=== PATIENT | female | born 1930 | race Caucasian/White ===

== ENCOUNTER 2016-06-25 15:42 | Emergency (ER) | payer MEDICARE ==
[~2016-06-25] VITALS: Ht 160 cm; Wt 78.2 kg
[2016-06-25] VITALS (7 sets, daily range): BP systolic 114–149; BP diastolic 56–80; PULSE 94–124; RESP 13–19; O2SAT 97–99
[2016-06-25] MEDS ORDERED: HYDROmorphone 1 mg/mL Inj IVPUSH ONE ×3 (16:20→19:30)
--- NOTE | 2016-06-25 16:22 | ED.REPORT ---
HPI-Trauma Multiple Date of Service Jun 25, 2016 ED Provider: Rasta Landeros MD An 86 year old female on Coumadin with a history of atrial flutter, hypertension , diabetes, and multiple other medical concerns is brought to the ED via EMS due to a fall. The pt was walking from her car to her home when she slipped on the rocks on the pathway. She fell down, hitting her left knee and left shoulder. She is now experiencing severe left shoulder pain, though she denies knee pain, neck pain, back pain, vomiting, numbness, or tingling. She also denies head trauma or loss of consciousness. The pt is on Coumadin and Metoprolol 50 mg BID. She took her morning medications, but has not taken her nightly doses. Her last meal was at 11:00. Nursing Notes Stated Complaint: FALL Chief Complaint: Extremity Trauma Nursing Notes Reviewed: Yes Allergies: Coded Allergies: HEIDY Inhibitors (Verified Allergy, Severe, ANGIOEDEMA, 02/06/09) Sulfa (Sulfonamide Antibiotics) (Verified Allergy, Intermediate, 06/25/16) morphine (Verified Allergy, Intermediate, itch, 06/25/16) cephalexin (Verified Allergy, Unknown, 06/25/16) nitrofurantoin (Verified Allergy, Unknown, 06/25/16) Scheduled Citalopram (Citalopram) 20 Mg Tablet 20 MG PO DAILY Estradiol (Estrace) 42.5 Gm Cream.appl 1 G VG /Sundays Losartan Potassium (Losartan Potassium) 25 Mg Tablet 25 MG PO DAILY Lovastatin (Lovastatin) 40 Mg Tablet 80 MG PO HS Metoprolol Tartrate (Metoprolol Tartrate) 50 Mg Tablet 50 MG PO BID Spironolactone (Spironolactone) 25 Mg Tablet 25 MG PO DAILY Warfarin Sodium (Warfarin Sodium) 5 Mg Tablet 2.5 MG PO Daily except Scheduled PRN Docusate Sodium (Docusate Sodium) 250 Mg Capsule 250 MG PO DAILY PRN PRN For Constipation Hydrocodone-Acetaminophen 5-325 mg (Hydrocodone-Acetaminophen 5-325 mg) 1 Each Tablet 1.5 TABLET PO Q6H PRN PRN For Pain General Time Seen by Provider: 16:17 Chief Complaint Other (left shoulder pain) Hx Obtained From: Patient, EMS Arrived By: Ambulance Onset Occurred: 1 - 4 hours ago Symptom Duration: Since onset Recent Healthcare: No recent hospitalization, Recent doctor visit Similar Sx Previous: No Past Medical History Past Medical History atrial flutter diabetes cataracts hypertension UTI arthritis depression anxiety Past Surgical History Reports: Appendectomy, Cataract surgery Review of Systems Review of Systems Note: denies numbness or tingling Constitutional: Denies: Fever Respiratory: Denies: Non-productive cough, Shortness of breath Cardiovascular: Denies: Chest pain GI: Denies: Abdominal pain, Nausea, Vomiting Musculoskeletal: Reports: Joint pain (left shoulder), Denies: Back pain, Neck pain Skin: Denies Rash Neurologic: Denies: Change LOC, Headache, Weakness Complete sys rev & neg: except as marked. Physical Exam Initial Vital Signs Vital Signs (First) Date Time Temp Pulse Resp B/P Pulse Ox O2 Delivery O2 Flow Rate FiO2 06/25/16 15:57 36.2 114 13 138/68 98 Room Air Initial VS: Reviewed General/Constitutional: Awake, Alert Head / Eyes: Atraumatic, Normocephalic, PERRL, EOMI Neck: Atraumatic, Supple, Full range of motion no c-spine tenderness or deformity Respiratory / Chest: Atraumatic, Breath sounds NL, Breath sounds = bilat, No respiratory distress Cardiovascular: Heart rate NL, Regular rhythm, Heart sounds NL, No gallop, No murmurs, No rubs Abdomen: Atraumatic, Soft, Non-tender Back: Atraumatic, Full range of motion Neurologic: Oriented X3, Speech NL, No motor deficits, No sensory deficits ENT: Atraumatic, Airway patent, Mucous membranes moist right arm atraumatic obvious deformity of left shoulder senior center director strength intact in left hand neurovascularly intact left arm sensation intact in deltoid region left elbow nontender Lower Extremity / Pelvis / MS: Atraumatic mild tenderness over left lateral hip pelvis stable to rock and compression FROM of LLE able to flex at hip and knee no signs of significant trauma to hip or knee no significant tenderness to left knee FROM of RLE, atraumatic bilaterally neurovascularly intact Skin: Atraumatic, Color NL, No rash, Warm, Dry Psychiatric: Affect NL, Mood NL Interpretation & Diagnostics Lab Results Interpretation Result Diagram: 06/25/16 1617 06/25/16 1617 Test 06/25/16 16:17 White Blood Count 12.8th/mm3 (3.8-10.1) Red Blood Count 3.99mil/mm3 (3.90-5.20) Hemoglobin 12.5g/dL (12.0-15.6) Hematocrit 37.1% (35.0-46.0) Mean Corpuscular Volume 93.0fL (81-100) Mean Corpuscular Hemoglobin 31.3pg (27.0-35.0) Mean Corpuscular Hemoglobin Concent 33.7% (32.0-37.0) Red Cell Distribution Width 14.2% (12.3-15.4) Platelet Count 209bil/L (150-400) Neutrophils (%) (Auto) 81.3% (40-74) Lymphocytes (%) (Auto) 9.4% (14-46) Monocytes (%) (Auto) 7.2% (4-12) Eosinophils (%) (Auto) 1.6% (0-5) Basophils (%) (Auto) 0.2% (0-3) Prothrombin Time 33.8sec (8.1-12.5) Prothromb Time International Ratio 3.09ratio Activated Partial Thromboplast Time 36.0sec (22.8-33.0) Sodium Level 138mEq/L (134-144) Potassium Level 4.8mEq/L (3.5-5.2) Chloride Level 99mEq/L (97-108) Carbon Dioxide Level 18mmol/L (18-29) Blood Urea Nitrogen 33mg/dL (8-27) Creatinine 1.18mg/dL (0.57-1.00) Estimat Glomerular Filtration Rate 62mL/min (>59) Glucose Level 161mg/dL (60-99) Calcium Level 9.2mg/dL (8.5-10.1) Total Bilirubin 2.4mg/dL (0.0-1.2) Aspartate Amino Transf (AST/SGOT) 55U/L (0-50) Alanine Aminotransferase (ALT/SGPT) 61U/L (0-32) Alkaline Phosphatase 460U/L (25-165) Total Protein 6.4g/dL (6.4-8.4) Albumin 3.5g/dL (3.4-5.0) ECG Interpretation ECG Interpretation: atrial flutter with a rate of 118 normal axis interval no acute ST segment changes or T wave abnormalities no previous for comparison Time: 16:23 Interpreted by: ED physician X-Ray Interpretation Xray Interpretation: IMPRESSION: Left humerus fracture dislocation. Dictated by: Soo Knight MD, PhD on 06/25/2016 at 17:23 Approved by: Soo Knight MD, PhD on 06/25/2016 at 17:24 X-Ray Ordered: Shoulder left Interpretation / Wet Read by: Interpret - Radiologist Xray Interpretation: IMPRESSION: Left humerus fracture dislocation. Dictated by: Soo Knight MD, PhD on 06/25/2016 at 20:10 Approved by: Soo Knight MD, PhD on 06/25/2016 at 20:10 X-Ray Ordered: Shoulder left Interpretation / Wet Read by: Interpret - Radiologist Re-Eval/Medical Decision Med Decision/Clinical Course The patient is an 86-year-old female with a history of atrial flutter on Coumadin who presents to the emergency department after a ground-level fall onto her left shoulder complaining of left shoulder pain and deformity. She did not strike her head or lose consciousness. Upon arrival she is afebrile with stable vital signs and obvious deformity of her left shoulder though she is neurovascularly intact in her left arm. Full head to toe survey reveals no other associated injuries. X-ray was obtained as above and demonstrated fracture dislocation of the left shoulder. Laboratory studies were notable as below: CBC with borderline leukocytosis of 12.8 BUN 33/creatinine 1.18 Transaminases mildly elevated Total bilirubin 2.4 Alkaline phosphatase 460 EKG was obtained and interpreted by myself as documented above and was notable for atrial flutter with rapid ventricular response. Emergency department the patient received hydromorphone for pain, Zofran for nausea and IV fluid bolus. Given the patient's complicated shoulder injury she was discussed in detail with Dr. Traore who evaluated her at the bedside and performed shoulder joint injection with lidocaine followed by reduction at the bedside. Follow-up films per radiology demonstrated posterior dislocation however pills were reviewed by Dr. Traore patient was told to have achieved adequate reduction. A sling was placed and she from an orthopedic standpoint was felt to be appropriate for outpatient follow-up in orthopedic surgery clinic. Patient's atrial flutter with rapid ventricular response is likely largely related to her pain and after shoulder reduction her tachycardia improved however she had missed her evening dose of oral metoprolol. She received an additional fluid bolus and 3 additional doses of IV metoprolol and adequate rate control was achieved. She remained hemodynamically stable. Serial abdominal examinations remained benign without any right upper quadrant tenderness however she was noted to have mildly elevated transaminases and total bilirubin. The patient stated that she felt better and requested to be discharged. While I had offered admission for ongoing rate management, pain control and workup of her elevated liver tests she refused admission and stated that she preferred to go home and follow up with her regular doctor on an outpatient basis. Given that she is afebrile without any significant abdominal tenderness I feel that this is reasonable. Given the fact that she is anticoagulated on Coumadin I considered obtaining neuro imaging however patient and family repeatedly stated that she did not strike her head, examination revealed no evidence of head trauma and serial neurologic examinations throughout her greater than 5 hour ER visit remained completely normal. She will take her home pain medications (already prescribed oxycodone) and follow up with orthopedic surgery and her primary care physician on an outpatient basis. Follow-up and return precautions were reviewed in detail with the patient as well as her family members and they verbalized understanding and agreement with the plan. Source of Hx: Old records Re-Evaluation/Progress #1: Time of Eval: 17:34 Patient Status: Condition improved Re-Evaluation/Progress Note: Pt rechecked, who is stable. She is informed of her diagnosis and need for ortho consultation. Re-Evaluation/Progress #2: Time of Eval: 18:22 Patient Status: Condition improved Re-Evaluation/Progress Note: Pt rechecked, who is accompanied by family. Plan for admission is discussed. The pt understands and agrees with the plan. All questions are addressed at this time. Re-Evaluation/Progress #3: Time of Eval: 19:58 Patient Status: Condition improved Re-Evaluation/Progress Note: Pt rechecked, whose condition has improved following reduction by ortho. Possibility of discharge is discussed. Re-Evaluation/Progress #4: Time of Eval: 21:05 Patient Status: Condition improved Re-Evaluation/Progress Note: Pt rechecked, who is resting. The plan for discharge is discussed. The pt understands and agrees with the plan. All questions are addressed at this time. Consultation #1: Referral / Consult Name: Vinicio Santana MD Consulted With: Orthopedic Call Returned at: 18:05 Note: Spoke with roberto Vanessa, regarding pt's case. Dr. Santana agrees to consult. Consultation #2: Referral / Consult Name: Vinicio Santana MD Consulted With: Orthopedic Call Returned at: 18:32 Lead Blender: Agrees with eval, Agrees with plan Note: Spoke with Dr. Santana regarding pt's admission. Dr. Santana agrees with the evaluation and plan. Consultation #3: Referral / Consult Name: Aaron Franco MD Call Returned at: 18:44 Lead Blender: Agrees with eval, Agrees with plan, Accepts admit Note: Spoke with Dr. Franco, hospitalist, regarding pt's case. Dr. Franco agrees with the evaluation and agrees to admit the pt. Consultation #4: Referral / Consult Name: Garrick Traore DO Call Returned at: 18:56 Lead Blender: Agrees with eval, Agrees with plan Note: Consulted with roberto Lara, regarding pt's case. Dr. Traore agrees to reduce pt's arm in the ED. Counseled Regarding: Diagnosis, Lab results, Need for admission Discharge & Departure Impression: Primary Impression: Anterior dislocation of left humerus Encounter type: initial encounter Qualified Code: S43.015A - Anterior dislocation of left humerus, initial encounter Additional Impressions: Fracture of left humerus Encounter type: initial encounter Humerus Location: proximal Fracture type : closed Fracture morphology: unspecified fracture morphology Qualified Code : S42.202A - Unspecified fracture of upper end of left humerus, initial encounter for closed fracture Atrial flutter with rapid ventricular response Left shoulder pain Chronicity: acute Qualified Code: M25.512 - Pain in left shoulder Fall from ground level Total bilirubin, elevated Elevated transaminase level Leukocytosis Leukocytosis type: unspecified Qualified Code: D72.829 - Elevated white blood cell count, unspecified Anticoagulated on Coumadin Disposition: ADMITTED TO HOSPITAL Discharge Condition All VS Reviewed: Yes Condition: Stable Additional Instructions: Wear the sling until recheck. Take pain medications as instructed. Call tomorrow to arrange for follow up with orthopedic surgery clinic. Return to the emergency department if you develop any new or worsening symptom including increasing pain, numbness, tingling, or weakness. Referrals: Rob Walters MD (PCP) Crit Care Except Billable Proc Time Spent: 165-194 minutes Services Performed: Patient management by me, Time spent at bedside, Reviewing test results, Reviewing imaging, Discussing patient care, Documentation in record, Time with fam/surrogate Scribe Attestation Portions of this note were transcribed by Joanie Grace. I, Dr. Landeros personally performed the history, physical exam and medical decision-making; I reviewed and confirmed the accuracy of the information in the transcribed note. Signed by: Ankur Urbina, 06/25/2016 and 1406. copies to: oRb Walters MD, Beck O MD Jun 25, 2016 16:22 JOANIE GRACE Jun 25, 2016 16:49
[2016-06-25 16:26] LABS: BASOPHILS % (AUTO) 0.2 % (0-3); EOSINOPHILS % (AUTO) 1.6 % (0-5); MONOCYTES % (AUTO) 7.2 % (4-12); Mean Corpuscular Hemoglobin 31.3 pg (27.0-35.0); NEUTROPHILS % (AUTO) 81.3 % (40-74); Platelet Count 209 bil/L (150-400)
[2016-06-25 16:51] LABS: INR 3.09 ratio
--- NOTE | 2016-06-25 17:25 | DRSVH ---
PROCEDURE: X-RAY LEFT SHOULDER, MINIMUM TWO VIEWS ([id number]) INDICATIONS: inj TECHNIQUE: 3 views of the shoulder were acquired. COMPARISON: None. FINDINGS: Bones: Comminuted, displaced fracture of the proximal humerus is noted. The humerus is dislocated ant eriorly. Soft tissues: No suspicious soft tissue calcifications. IMPRESSION: Left humerus fracture dislocation. Dictated by: Soo Knight MD, PhD on 06/25/2016 at 17:23 Approved by: Soo Knight MD, PhD on 06/25/2016 at 17:24
[2016-06-25] MEDS ORDERED: 0.9% Sodium Chloride 1,000 ML IV ONE ×2 (17:30→20:00)
[2016-06-25] MEDS ORDERED: Alum-Mag Hydrox-Simeth 30 mL Suspension PO PRN (18:10)
[2016-06-25] MEDS ORDERED: Ondansetron 2 mg/mL 2 mL Inj IVPUSH PRN (18:10)
[2016-06-25] MEDS ORDERED: LOSA25TA21 PO (18:25)
[2016-06-25] MEDS ORDERED: SPIR25TA3 PO (18:25)
[2016-06-25] MEDS ORDERED: CITA20TA11 PO (18:26)
[2016-06-25] MEDS ORDERED: LOVA40TA PO (18:26)
[2016-06-25] MEDS ORDERED: METO50TA3 PO (18:26)
[2016-06-25] MEDS ORDERED: HYDR-4003 PO (18:26)
[2016-06-25] MEDS ORDERED: WARF5TAB7 PO (18:28)
[2016-06-25] MEDS ORDERED: DOCU250C2 PO (18:28)
[2016-06-25] MEDS ORDERED: ESTR42.52 VG (18:28)
[2016-06-25] MEDS ORDERED: ESTRADIOL 1 GM SCH (20:00)
--- NOTE | 2016-06-25 20:06 | PCM.HPMED ---
Subjective Date of Service Jun 25, 2016 Primary Provider: Admitting Physician: Aaron Franco MD Primary Care Physician: Rob Walters MD Attending Physician: Vinicio Santana MD Chief Complaint: S/p fall. History of Present Illness: 86 years old with past medical history of hypertension , hypercholesterolemia, is brought to the ER after she sustained a mechanical fall at home . Patient was walking along side her driveway to her car when she stripped on rock and fall. No CP, palpitation, dizziness, light headedness , syncope or near syncope. ER X-ray shows fracture and dislocation of her humerus . Patient denies hitting her head . Review of Systems: Review of systems is pertinent for fall otherwise a comprehensive review x 12 points is negative . Allergies Coded Allergies: HEIDY Inhibitors (Verified Allergy, Severe, ANGIOEDEMA, 06/26/16) Sulfa (Sulfonamide Antibiotics) (Verified Allergy, Intermediate, 06/26/16) morphine (Verified Allergy, Intermediate, itch, 06/26/16) cephalexin (Verified Allergy, Unknown, 06/26/16) nitrofurantoin (Verified Allergy, Unknown, 06/25/16) Home Medications Citalopram (Citalopram) 20 Mg Tablet 20 MG PO DAILY Estradiol (Estrace) 42.5 Gm Cream.appl 1 G VG /Sundays Losartan Potassium (Losartan Potassium) 25 Mg Tablet 25 MG PO DAILY Lovastatin (Lovastatin) 40 Mg Tablet 80 MG PO HS Metoprolol Tartrate (Metoprolol Tartrate) 50 Mg Tablet 50 MG PO BID Spironolactone (Spironolactone) 25 Mg Tablet 25 MG PO DAILY Warfarin Sodium (Warfarin Sodium) 5 Mg Tablet 2.5 MG PO Daily except Scheduled PRN Docusate Sodium (Docusate Sodium) 250 Mg Capsule 250 MG PO DAILY PRN PRN For Constipation Hydrocodone-Acetaminophen 5-325 mg (Hydrocodone-Acetaminophen 5-325 mg) 1 Each Tablet 1.5 TABLET PO Q6H PRN PRN For Pain PMH Hypertension, DVT, Arrhythmia, Hypercholesterolemia Surgical History Appendectomy, hysterectomy Family History Reviewed and is non contributory to the present illness Social History Hx Alcohol Use: Yes (OCCASIONAL ) Hx Substance Use: No Hx Tobacco Use: No Smoking Status: Never Smoker Exam Vital Signs Vital Sign - Last Date Time Temp Pulse Resp B/P Pulse Ox O2 Delivery O2 Flow Rate FiO2 06/25/16 19:37 120 14 145/80 98 Room Air 06/25/16 15:57 36.2 Exam Gen/ constitutional : . NAD. Ell nourished HEENT : DIANNA. Sclerae is anicteric Mouth : moist oral mucosae, no oral thrush Neck : Supple, no JVD , trachea is midline. Chest : normal respiratory effort, No chest wall deformity', Left shoulder deformity noted, tender on palpation. Lung : clear bilaterally , vesicular breath sounds. No crackles Heart : S1S2, RRR, No gallop, no murmur Abdomen : Soft t, non tender, non distended, no palp mass. Audible BS all quadrants Ext: No edema, no cyanosis, no calf tenderness\ Neuro : Grossly non focal . Sensation is intact Lab and Diagnostics Result Diagram: 06/25/16161606/25/161616 X-Rays, CTs and MRIs Shoulder X-ray reviewed : Left humerus fracture dislocation Assessment & Plan 1. Left humerus fracture dislocation 2 . Acute renal failure 3. Elevated LFTs 2. H/o DVT on Coumadin 3. Sinus tachycardia 4. Hypertension 5. Hyperlipidemia Admit Pain control with morphine sulfate 2 mg IV Q4H PRN NS @ 75ml/hr for acute renal failure. Mild elevation in LFs noted. Repeat level after hydration. Orthopedist consulted for possible closed reduction. Increase metoprolol to 50 mg PO BID for HR control/. Home medication reviewed and reconciled . On Coumadin . INR 3. Further management as per orthopedist t Pain Evaluation: Adequate Pain Control VTE Prophylaxis: Other (On coumadin ) Resuscitation Status: CPR: Attempt Resuscitation Time spent 55 minutes Aaron Franco MD Jun 25, 2016 20:06
[2016-06-25] MEDS: MeTOProlol 1 mg/mL 5 mL Inj IVPUSH SCH ×3 (20:11→20:58)
--- NOTE | 2016-06-25 20:12 | DRSVH ---
PROCEDURE: X-RAY LEFT SHOULDER, MINIMUM TWO VIEWS ([id number]) INDICATIONS: post reduction TECHNIQUE: 3 views of the shoulder were acquired. COMPARISON: None. FINDINGS: Bones: Review fracture the humeral head is noted. Humeral head is dislocated dorsally. No suspicio us bony lesions. Visualized ribs appear intact. Soft tissues: No suspicious soft tissue calcifications. IMPRESSION: Left humerus fracture dislocation. Dictated by: Soo Knight MD, PhD on 06/25/2016 at 20:10 Approved by: Soo Knight MD, PhD on 06/25/2016 at 20:10
[2016-06-25] MEDS ORDERED: HYDROcodone-APAP 5-325 mg Tablet PO PRN (20:45)
--- NOTE | 2016-06-25 20:59 | CONS ---
[address] [address] CONSULTATION REPORT PATIENT: NASREEN VEGA : 1930 MR#: [id number] ADMIT: 06/25/2016 JOB ID: [id number] DATE OF SERVICE: 06/25/2016 CHIEF COMPLAINT: Left shoulder pain. HISTORY OF PRESENT ILLNESS: The patient is an 86-year-old female with history of atrial flutter, anticoagulated, who fell today onto her left shoulder, sustaining a left shoulder fracture-dislocation. She is right-hand dominant. She had onset of severe acute pain and was brought to the emergency department for evaluation and treatment. PAST MEDICAL HISTORY: Significant for atrial flutter and arthritis. PAST SURGICAL HISTORY: Includes appendectomy and total hip arthroplasty approximately eight years ago. PHYSICAL EXAMINATION: Her vital signs: Blood pressure 145/80, pulse rate 120 in a flutter, respirations 14. She is alert and cooperative, in some distress secondary to her left shoulder pain. She is able to move her fingers. Sensation in the hand is intact. It is difficult to assess her axillary nerve function because she is unable to tighten her deltoid and it is unclear whether she had numbness over the lateral upper arm. X-rays demonstrate a left shoulder fracture-dislocation of the proximal humerus. ASSESSMENT: Left shoulder proximal humerus fracture-dislocation. PLAN: We discussed treatment options for this including a closed reduction under intra-articular block versus closed reduction in the operating room, and she and I and the ED physician felt that it would be safest to do a closed reduction with intra-articular block. We discussed this treatment and discussed the risks and benefits, all questions were answered and she wished to proceed. PROCEDURE IN DETAIL: The patient was given 1 mg of Dilaudid IV to aid with pain control in the left shoulder. The posterolateral shoulder was injected with 15 cc of 1% lidocaine plain. She tolerated the injection well and then her shoulder was reduced with a combination of traction and some gentle posteriorly directed force on the humeral head, and the shoulder reduced relatively easily once the patient relaxed. She immediately felt better after the reduction maneuver and x-rays were performed which confirmed reduction. She did have some pseudosubluxation of the humerus likely due to axillary nerve dysfunction. We will have the patient in an arm sling and follow up in the clinic in one week or sooner if needed.
--- NOTE | 2016-06-25 22:07 | PCM.PHAPRO ---
Progress Date of Service: Jun 25, 2016 S/p fall. Warfarin Management per Pharmacy: Indication: Stroke prophylaxis as patient has atrial flutter ([id number] = 5) Goal INR: 2-3 Home Dose: 2.5 mg PO daily except on (skip dose) Labs: Hgb/Hct: 12.7/37.1 Plt: 209 INR: 3.09 Drug-Drug Interactions: Celexa (antiplatelet properties) Other: Pt admitted with fall, no head CT done, no signs of AMS or bleeding Recommendation: Warfarin 1 mg PO x 1 tonight, skip tomorrow per home schedule. Thank You, Jodi Tillman, Pharm D. Jodi Tillman Jun 25, 2016 22:07
== END 2016-06-25 21:33 | disposition home or self-care (01) ==
LOC: EDBD 15:42 → EDUNIT# 15:42 → SED 15:43 → OSC 19:22 → UNDOADMOB 19:22 → SED 21:33
DX: S43.015A Anterior dislocation of left humerus, initial encounter (principal); S42.202A Unspecified fracture of upper end of left humerus, initial encounter for closed fracture; W01.198A Fall on same level from slipping, tripping and stumbling with subsequent striking against other object, initial encounter; Y92.488 Other paved roadways as the place of occurrence of the external cause; Y93.01 Activity, walking, marching and hiking; Y99.8 Other external cause status; I48.92 Unspecified atrial flutter; E80.7 Disorder of bilirubin metabolism, unspecified; R74.0 Nonspecific elevation of levels of transaminase and lactic acid dehydrogenase [LDH]; D72.829 Elevated white blood cell count, unspecified; E11.9 Type 2 diabetes mellitus without complications; I10 Essential (primary) hypertension; Z87.440 Personal history of urinary (tract) infections; Z79.01 Long term (current) use of anticoagulants; Z88.8 Allergy status to other drugs, medicaments and biological substances; Z88.2 Allergy status to sulfonamides; Z88.5 Allergy status to narcotic agent; Z88.1 Allergy status to other antibiotic agents
CPT/HCPCS: 23650; 36415; 73030; 80053; 85025; 85610; 85730; 93005; 96361; 96374; 96375; 96376; 99285; 99291; 99292; J1170; J7030

== ENCOUNTER 2016-06-26 11:45 | Inpatient (IN) | payer MEDICARE ==
[~2016-06-26] VITALS: Ht 160 cm; Wt 81.5 kg
[~2016-06-26 11:45] MED LIST: CITA20TA11 PO; DOCU250C2 PO; ESTR42.52 VG; HYDR-4003 PO; LOSA25TA21 PO; LOVA40TA PO; METO50TA3 PO; SPIR25TA3 PO; WARF5TAB7 PO
[2016-06-26 11:50] VITALS: BP 143/79; PULSE 113; RESP 17; O2SAT 98
--- NOTE | 2016-06-26 13:16 | ED.REPORT ---
HPI-Extremity Problem Lower Date of Service Jun 26, 2016 ED Provider: James Canchola DO 86 year old female anticoagulated on warfarin with a history of arthritis presents to the ER accompanied by her daughter complaining of left knee pain status post mechanical ground level fall yesterday. Patient denies any head or neck trauma secondary to the fall, chest pain, SOB, fever, dysuria and any recent changes in medication. Since the fall she has been ambulatory with a cane , but has been having difficulty standing from a seated position. She was seen here in the ER yesterday for left shoulder pain after the fall. Daughter mentions that the patient had some right side abdominal tenderness to palpation on her exam during her visit here yesterday, and decreased appetite with recent 10lb weight loss. Nursing Notes Stated Complaint: L KNEE INJURY Chief Complaint: Extremity Trauma Nursing Notes Reviewed: Yes Allergies: Coded Allergies: HEIDY Inhibitors (Verified Allergy, Severe, ANGIOEDEMA, 06/26/16) Sulfa (Sulfonamide Antibiotics) (Verified Allergy, Intermediate, 06/26/16) morphine (Verified Allergy, Intermediate, itch, 06/26/16) cephalexin (Verified Allergy, Unknown, 06/26/16) nitrofurantoin (Verified Allergy, Unknown, 06/25/16) Scheduled Citalopram (Citalopram) 20 Mg Tablet 20 MG PO DAILY Estradiol (Estrace) 42.5 Gm Cream.appl 1 G VG /Sundays Losartan Potassium (Losartan Potassium) 25 Mg Tablet 25 MG PO DAILY Lovastatin (Lovastatin) 40 Mg Tablet 80 MG PO HS Metoprolol Tartrate (Metoprolol Tartrate) 50 Mg Tablet 50 MG PO BID Spironolactone (Spironolactone) 25 Mg Tablet 25 MG PO DAILY Warfarin Sodium (Warfarin Sodium) 5 Mg Tablet 2.5 MG PO Daily except Scheduled PRN Docusate Sodium (Docusate Sodium) 250 Mg Capsule 250 MG PO DAILY PRN PRN For Constipation Hydrocodone-Acetaminophen 5-325 mg (Hydrocodone-Acetaminophen 5-325 mg) 1 Each Tablet 1.5 TABLET PO Q6H PRN PRN For Pain General Time Seen by MD: 13:11 Chief Complaint Knee injury left Hx Obtained From: Patient Arrived By: Walk-in Onset Occurred: Yesterday Symptom Duration: Since onset Caused by: Accidental, Fall on ground Context: Occurred at: Home injury Location: : Knee left Quality: Painful Severity: Current: Moderate Severity: Maximum: Moderate Associated with: Denies: Loss of consciousness, Neck pain Pertinent Negative: Pt denies other symptoms Exacerbated by: Range of motion Pertinent Negative: Relieved by nothing Past Medical History Past Medical History atrial flutter diabetes cataracts hypertension UTI arthritis depression anxiety Past Surgical History Reports: Appendectomy, Cataract surgery Smoking History Never Smoker Review of Systems Constitutional: Denies: Fever Musculoskeletal: Reports: Joint pain (Right Knee), Denies: Back pain, Extremity pain, Lumbar pain, Neck pain Neurologic: Denies: Headache, Syncope Complete sys rev & neg: except as marked. Respiratory: Denies: Shortness of breath Cardiovascular: Denies: Chest pain Female: Denies: Dysuria Physical Exam Initial Vital Signs Vital Signs (First) Date Time Temp Pulse Resp B/P Pulse Ox O2 Delivery O2 Flow Rate FiO2 06/26/16 11:50 36.2 113 17 143/79 98 Room Air Initial VS: Reviewed Head / Eyes: Atraumatic, Normocephalic Neck: Supple, Non-tender, Full range of motion Abdomen / GI: Soft, Non-tender, No guarding, No rebound, No distention Upper Extremities: Vascular intact, Neuro intact, No swelling, No tenderness Skin: Warm, Dry, No cyanosis Neurologic: Alert, Oriented, Nonfocal Lower Extremity / Pelvis / MS: Neurologic intact, Vascular intact Right Knee: Positive: Ecchymosis present (Anterior bruising), Joint effusion present, ROM painful, Tenderness present... (Moderate) Ankle / Foot: Atraumatic, Inspection NL, Full range of motion, No swelling, No erythema, Non-tender, No deformity, Neurologic intact, Vascular intact, No edema Interpretation & Diagnostics Lab Results Interpretation Result Diagram: 06/26/16 1440 Test 06/26/16 14:05 06/26/16 14:40 06/26/16 15:04 Prothrombin Time 36.1sec (8.1-12.5) Prothromb Time International Ratio 3.29ratio White Blood Count 13.1th/mm3 (3.8-10.1) Red Blood Count 3.73mil/mm3 (3.90-5.20) Hemoglobin 11.4g/dL (12.0-15.6) Hematocrit 35.2% (35.0-46.0) Mean Corpuscular Volume 94.4fL (81-100) Mean Corpuscular Hemoglobin 30.6pg (27.0-35.0) Mean Corpuscular Hemoglobin Concent 32.4% (32.0-37.0) Red Cell Distribution Width 14.5% (12.3-15.4) Platelet Count 179bil/L (150-400) Neutrophils (%) (Auto) 83.6% (40-74) Lymphocytes (%) (Auto) 7.6% (14-46) Monocytes (%) (Auto) 8.2% (4-12) Eosinophils (%) (Auto) 0.2% (0-5) Basophils (%) (Auto) 0.1% (0-3) X-Ray Interpretation Xray Interpretation: IMPRESSION: No visualized acute fracture or dislocation. However, if clinical concern and/or pain persist, short interval imaging followup in 7-10 days is recommended, as occult injury cannot be definitively excluded. Dictated by: Sheyla Barriga M.D. on 06/26/2016 at 13:17 Approved by: Sheyla Barirga M.D. on 06/26/2016 at 13:31 X-Ray Ordered: Knee left Interpretation / Wet Read by: Interpret - Radiologist Re-Eval/Medical Decision Med Decision/Clinical Course Patient has newly abnormal LFTs, weight loss, weakness and reportedly had abdominal pain yesterday, unclear whether these lab values are traumatic, infectious, or malignancy nature. Patient is undergoing repeat lab evaluation and CT of the abdomen and pelvis to exclude traumatic pathology. Care transferred to Dr. Matthew Source of Hx: Old records Re-Evaluation/Progress : Time of Eval: 13:39 Re-Evaluation/Progress Note: Discussed x-ray results and updated patient on the plan of care. Discharge & Departure Shift Change Sign-Out Patient Care Transferred: Yes Discussed Complaint(s): Yes Impression: Primary Impression: Fall from ground level Discharge Condition All VS Reviewed: Yes Condition: Stable Referrals: Rob Walters MD (PCP) Care Transferred to: Dr. Matthew Care Transferred at: 15:01 Scribe Attestation Portions of this note were transcribed by Lee Roque. I, Dr. Canchola, personally performed the history, physical exam and medical decision-making; I reviewed and confirmed the accuracy of the information in the transcribed note. Signed by: Ankur Yao, 06/26/2016 and 15:01 copies to: Rob Walters MD, Timothy S DO Jun 26, 2016 13:16 LEE ROQUE Jun 26, 2016 13:24
--- NOTE | 2016-06-26 13:33 | DRSVH ---
PROCEDURE: X-RAY LEFT KNEE, THREE VIEWS ([id number]) INDICATIONS: FALL, UNABLE TO AMBULATE TODAY TECHNIQUE: 3 views of the knee were acquired. COMPARISON: [facility] [place], BELKYS, KNEE 3VW (LT), 07/03/2014, 10:4 7. FINDINGS: Bones: No fractures or dislocations. No suspicious bony lesions. Tricompartmental degenerative amanda nges are present. Soft tissues: No joint effusion. No suspicious soft tissue calcifications. IMPRESSION: No visualized acute fracture or dislocation. However, if clinical concern and/or pain pe rsist, short interval imaging followup in 7-10 days is recommended, as occult injury cannot be defini tively excluded. Dictated by: Sheyla Barriga M.D. on 06/26/2016 at 13:17 Approved by: Sheyla Barriga M.D. on 06/26/2016 at 13:31
[2016-06-26 14:30] LABS: INR 3.29 ratio
[2016-06-26 14:56] LABS: BASOPHILS % (AUTO) 0.1 % (0-3); EOSINOPHILS % (AUTO) 0.2 % (0-5); MONOCYTES % (AUTO) 8.2 % (4-12); Mean Corpuscular Hemoglobin 30.6 pg (27.0-35.0); Mean Corpuscular Volume 94.4 fL (81-100); NEUTROPHILS % (AUTO) 83.6 % (40-74); Platelet Count 179 bil/L (150-400)
--- NOTE | 2016-06-26 15:55 | DRSVH ---
PROCEDURE: CT ABDOMEN AND PELVIS WITH CONTRAST TRAUMA ([id number]) INDICATIONS: RUQ pain, fall, abnormal LFT TECHNIQUE: After the administration of intravenous contrast, 5 mm thick sections acquired from the diaphragms to the symphysis. 5 mm thick coronal and sagittal reformats were acquired. Optional 10-minute delayed imaging may be performed from the kidneys to the bladder. For radiation dose reduction, the followi ng was used: automated exposure control, adjustment of mA and/or kV according to patient size. COMPARISON: None. FINDINGS: Image quality: Pelvis is obscured by left hip arthroplasty artifact. ABDOMEN: Lung bases: Lung bases are clear. Heart size is normal. No pericardial effusion. Inferior ribs ar e intact. No basal pleural effusions or pneumothorax. Solid organs: Multiple low-density uterine masses are present, largest of which is in the right hepat ic lobe inferomedially, measuring 73 mm. There is moderate intrahepatic biliary ductal dilatation. Ex trahepatic biliary tree is within normal limits. Pancreas enhances normally, without transection. No adrenal hematomas. Both kidneys enhance normally, without hydronephrosis or lacerations. Peritoneum and bowel: A moderate hiatal hernia is present. No free fluid or air. Unenhanced bowel l oops demonstrate normal wall thickness and caliber. Normal appendix. Nodes and vessels: No retroperitoneal or mesenteric adenopathy. Aorta and inferior vena cava are no rmal in size and enhancement. Miscellaneous: No ventral hernias. PELVIS: Partially it's cured by left hip arthroplasty artifact. Genitourinary: Bladder wall thickness is normal. A pessary is present. There is a complex cystic ma ss within the expected location of the uterus measuring roughly 52 mm, which demonstrates multiple se ptations. Miscellaneous: No inguinal hernias or adenopathy. Bones: Left hip arthroplasty has been performed. Pelvic ring and hip joints appear intact. No verte bral compression fractures. IMPRESSION: 1. No evidence of acute injury to the abdomen, nor pelvis. 2. Severe hepatic metastatic disease. 3. Moderate intrahepatic biliary ductal dilatation, possibly secondary to extrinsic compression of th e intrahepatic biliary tree, secondary to the hepatic masses. 4. Complex cystic focus within the expected location of the uterus. This could be further assessed wi pelvic ultrasound, if clinically indicated. 5. Moderate hiatal hernia. Dictated by: Karina Mcmillan M.D. on 06/26/2016 at 15:49 Approved by: Karina Mcmillan M.D. on 06/26/2016 at 15:54
[2016-06-26] MEDS ORDERED: HYDROmorphone 0.5 mg/0.5 mL iSecure Syringe IVPUSH ONE (16:20)
--- NOTE | 2016-06-26 16:21 | DRSVH ---
PROCEDURE: X-RAY CHEST ONE VIEW, PORTABLE ([id number]) INDICATIONS: leukocytosis TECHNIQUE: One view of the chest was acquired. COMPARISON: None. FINDINGS: Surgical changes and devices: None. Lungs and pleura: There is an overall appearance of mild increased pulmonary vascularity. Mediastinum: Mediastinal contours are within normal limits. Heart is mildly enlarged. Bones and chest wall: No suspicious bony lesions. Overlying soft tissues appear unremarkable. IMPRESSION: Mild increased pulmonary vascularity suggestive of edema. Dictated by: Sheyla Barriga M.D. on 06/26/2016 at 16:19 Approved by: Sheyla Barriga M.D. on 06/26/2016 at 16:20
[2016-06-26] MEDS ORDERED: 0.9% Sodium Chloride 1,000 ML IV ONE (16:55)
[2016-06-26] MEDS ORDERED: HYDROmorphone 0.5 mg/0.5 mL iSecure Syringe IVPUSH PRN (17:00)
[2016-06-26] MEDS ORDERED: Piperacillin-Tazo 3.375 Gm Inj 3.375 GM in Dextrose 5% Minibag Plus 50 ML IV ONE (17:05)
--- NOTE | 2016-06-26 17:24 | PCM.HPMED ---
Subjective Date of Service Jun 26, 2016 Primary Provider: Admitting Physician: Primary Care Physician: Rob Walters MD Attending Physician: Chief Complaint: Fall, knee pain History of Present Illness: Disease at 86 years old elderly female past medical history of hypertension, diabetes type II, anxiety, A. fib and flutter on Coumadin, who presented to the hospital today complaining about the pain. This patient was in the hospital yesterday after secretions and a mechanical fall at home and had a left shoulder dislocation and fracture of her humerus. She was seen by orthopedics to proceed to a close reduction and patient was discharged home. She is brought back to the hospital today by her daughter due to knee pain. There was also some concern regarding pain at right side of her abdomen, no nausea, no vomiting, no change in bowel habits. Patient endorses a 10 pounds weight loss over the past month also. X-ray of the knee in the emergency room showed no fracture. Laboratory tests shows elevated LFT, bilirubin, and patient is in acute renal failure. A CT scan of the abdomen showed extensive metastasis disease to the liver with intrahepatic dilation which may reflect possible extrahepatic the dilation by masses/Metastasis. Review of Systems: Review of system is pertinent for recent fall, abdominal pain, knee pain, weight loss otherwise a comprehensive review x 10 points is negative Allergies Coded Allergies: HEIDY Inhibitors (Verified Allergy, Severe, ANGIOEDEMA, 06/26/16) Sulfa (Sulfonamide Antibiotics) (Verified Allergy, Intermediate, 06/26/16) morphine (Verified Allergy, Intermediate, itch, 06/26/16) cephalexin (Verified Allergy, Unknown, 06/26/16) nitrofurantoin (Verified Allergy, Unknown, 06/25/16) Home Medications Scheduled Citalopram (Citalopram) 20 Mg Tablet 20 MG PO DAILY Estradiol (Estrace) 42.5 Gm Cream.appl 1 G VG /Sundays Losartan Potassium (Losartan Potassium) 25 Mg Tablet 25 MG PO DAILY Lovastatin (Lovastatin) 40 Mg Tablet 80 MG PO HS Metoprolol Tartrate (Metoprolol Tartrate) 50 Mg Tablet 50 MG PO BID Spironolactone (Spironolactone) 25 Mg Tablet 25 MG PO DAILY Warfarin Sodium (Warfarin Sodium) 5 Mg Tablet 2.5 MG PO Daily except Scheduled PRN Docusate Sodium (Docusate Sodium) 250 Mg Capsule 250 MG PO DAILY PRN PRN For Constipation Hydrocodone-Acetaminophen 5-325 mg (Hydrocodone-Acetaminophen 5-325 mg) 1 Each Tablet 1.5 TABLET PO Q6H PRN PRN For Pain PMH Atrial flutter Diabetes Cataracts Hypertension UTI Arthritis Depression Anxiety Surgical History Appendectomy, Cataract surgery Family History Family history reviewed and is noncontributory to the presenting illness Social History Hx Alcohol Use: Yes (OCCASIONAL ) Hx Substance Use: No Hx Tobacco Use: No Smoking Status: Never Smoker Living Arrangement: with Family (Partially dependent for ADL. Uses cane for ambulation ) Exam Vital Signs Vital Sign - Last Date Time Temp Pulse Resp B/P Pulse Ox O2 Delivery O2 Flow Rate FiO2 06/26/16 11:50 36.2 113 17 143/79 98 Room Air Exam General/Constitutional : Overweight female in bed comfortably. NAD Head / Eyes: Atraumatic, Normocephalic, sclerae anicteric Neck: Supple, Non-tender, Full range of motion, trachea is midline Chest : No chest wall tenderness, no deformity, normal respiratory effort Lung : Clear bilaterally, no crackle, no wheezing Abdomen / GI: Soft, Non-tender, No guarding, No rebound, No distention Heart : S1, S2, no gallop, no murmur Upper Extremities: Left shoulder sling in place, Neuro intact, No swelling, No tenderness. Lower Extremity / Pelvis / MS: Neurologic intact, Vascular intact Right Knee: Positive: Ecchymosis present (Anterior bruising), Neuro : Grossly non focal Lab and Diagnostics Result Diagram: 06/26/16 1440 06/26/16 1440 X-Rays, CTs and MRIs Abdominal CT scan reviewed : 1. No evidence of acute injury to the abdomen, nor pelvis. 2. Severe hepatic metastatic disease. 3. Moderate intrahepatic biliary ductal dilatation, possibly secondary to extrinsic compression of the intrahepatic biliary tree, secondary to the hepatic masses. 4. Complex cystic focus within the expected location of the uterus. This could be further assessed with pelvic ultrasound, if clinically indicated. 5. Moderate hiatal hernia. Chest X-ray : Mild increased pulmonary vascularity suggestive of edema. Assessment & Plan 1. S/p fall and knee pain 2. Elevated Liver enzymes 3. Acute renal Failure 4. Metastatic disease of unknown primary source 5. Intra-hepatic biliary duct obstruction with possible extrahepatic dilation as primary cause Chronic medical problems 1.- Atrial flutter/Afib : On Coumadin 2.-Diabetes 3.- Cataracts 4.- Hypertension 5. Arthritis 6.- Depression 7.- Anxiety Admit inpatient . Empiric Zosyn started in ER for possible infection. WBC elevated with shift. U/ a and culture positive. Gall bladder possible source . Elevated WBC could be also due to humeral fracture and discoloration ( S/p reduction yesterday) . Elevated liver enzymes due to metastatic disease and obstruction of intrahepatic duct.Primary source unknown ( possibly ovary) GI consulted . Will need biopsy and oncology consult . After a long discussion with the patient , she stated she is willing to explore all her treatment options including chemotherapy if needed because she is not ready to now. Start NS @ 50 ml/hr for cautious hydration and acute renal failure . Chest x- ray read as mild pulmonary edema by radiology although it is clear to my interpretation Monitor electrolyte and renal function. Potassium is elevated, no EKG changes. Start Kayexalate orally. Repeat BMP in a.m. Coumadin per pharmacy. Cautious dosing given hepatic failure. Home medications reviewed and reconciled .( See orders) . Sliding scale indulin with coverage . Pain control with morphine sulfate . This is an initial plan of care for now and will be adjusted as per clinical course GI consulted by ER and will see patient in AM Pain Evaluation: Adequate Pain Control VTE Prophylaxis: Other (On anticoagulation with warfarin ) Time spent 75 minutes Aaron Franco MD Jun 26, 2016 17:24
[2016-06-26] MEDS ORDERED: Lactated Ringer's 1,000 ML IV SCH (17:31)
[2016-06-26] MEDS ORDERED: Alum-Mag Hydrox-Simeth 30 mL Suspension PO PRN (17:35)
[2016-06-26] MEDS ORDERED: Polyethylene Glycol (PEG) 17 Gm Powder PO PRN (17:35)
[2016-06-26] MEDS ORDERED: 0.9% Sodium Chloride 1,000 ML IV SCH (17:35)
[2016-06-26] MEDS ORDERED: Ondansetron 2 mg/mL 2 mL Inj IVPUSH PRN (17:35)
[2016-06-26] MEDS: 0.9% Sodium Chloride 1,000 ML IV SCH (17:37)
--- NOTE | 2016-06-26 18:13 | PCM.PHAPRO ---
Progress Date of Service: Jun 26, 2016 Warfarin Management per Pharmacy: Indication: Stroke prophylaxis as patient has atrial flutter ([id number] = 5) Goal INR: 2-3 Home Dose: 2.5 mg PO daily except on (skip dose) Labs: Hgb/Hct: 11.4/35.2 Plt: 179 INR: 3.29 Drug-Drug Interactions: Celexa (antiplatelet properties) Drug-Disease Interactions: Edema per chest Xray, liver enzymes mildly elevated Recommendation: Hold warfarin today, INR daily Thank You, Jodi Tillman, Pharm D. Jodi Tillman Jun 26, 2016 18:13
--- NOTE | 2016-06-26 18:18 | NUR ---
Transfer from Er to [facility] Patient in the ER receiving IV Zosyn. Er report received. per report patient will be at [facility] as soon as IV ABO done. Patient is not at the [facility] yet.
[2016-06-26 18:25] VITALS: BP 136/74; PULSE 98; RESP 16; O2SAT 98
[2016-06-26 18:38] VITALS: BP 131/74; PULSE 95; RESP 18; O2SAT 98
--- NOTE | 2016-06-26 18:47 | NUR ---
TO [facility] Patient came to [facility] approx 1835. Stable vital signs. per patient pain 2/10 to left shoulder and knee. per patient they gave me pain mediations the ER. family at bed side. Oxygen stable at room air. one person assist with transfer. Blood cultures drawn per ER report. IV to right hand patent and NS running as ordered. Call light with in reach for safety. New orders for urine sample collection. stable mood.
[2016-06-26 20:11] LABS: APPEARANCE,URINE HAZY (CLEAR,HAZY); COLOR,URINE DARK YELLOW (YELLOW)
[2016-06-26 20:12] LABS: OCCULT BLOOD,URINE SMALL (NEGATIVE); PH,URINE 5.5 (5.0-8.0); UROBILINOGEN,URINE 4 mg/dL (NORMAL)
[2016-06-26] MEDS: HYDROmorphone 0.5 mg/0.5 mL iSecure Syringe IVPUSH PRN (23:33)
[2016-06-26 23:41] VITALS: BP 113/71; PULSE 91; RESP 18; O2SAT 96
[2016-06-27] VITALS (9 sets, daily range): BP systolic 105–131; BP diastolic 65–82; PULSE 88–128; RESP 16–20; O2SAT 95–98
[2016-06-27] MEDS: HYDROmorphone 0.5 mg/0.5 mL iSecure Syringe IVPUSH PRN ×2 (03:25→11:57)
--- NOTE | 2016-06-27 05:08 | NUR ---
Pain Pt c/o pain 10/10 to left shoulder and knee. Pt had orders for morphine, she has allergy to morphine. Phoned air pollution specialist and rec'd order for dilaudid. Pt had rec'd dilaudid at ED and had + effects. Dilaudid administered and Pt was able to rest this shift.
[2016-06-27 07:23] LABS: BASOPHILS % (AUTO) 0.1 % (0-3); EOSINOPHILS % (AUTO) 1.7 % (0-5); MONOCYTES % (AUTO) 9.4 % (4-12); Mean Corpuscular Volume 94.2 fL (81-100); NEUTROPHILS % (AUTO) 78.4 % (40-74); Platelet Count 162 bil/L (150-400)
[2016-06-27 08:13] LABS: Magnesium 1.9 mg/dL (1.6-2.6); Phosphorus 3.4 mg/dL (2.5-4.9)
[2016-06-27] MEDS: 0.9% Sodium Chloride 1,000 ML IV SCH (09:27)
[2016-06-27 10:31] LABS: INR 3.67 ratio
--- NOTE | 2016-06-27 14:05 | DRSVH ---
PROCEDURE: MR ABDOMEN MRCP INDICATIONS: elev lft/poss hep mass TECHNIQUE: Coronal HASTE through the abdomen, axial 2-D FLASH in- and [id number], and breath-hold T2 FSE with fat saturation through the biliary system and pancreas. Oblique coronal and axial thin-slice HASTE, radial thick-slab HASTE centered on the extrahepatic bile ducts. Intravenous secretin: Not requested. COMPARISON: [facility], CT, CT ABD PELVIS W CON TRAUMA, 06/26/2016, 15:19. FINDINGS: Image quality: Excellent. Pancreas and biliary system: Moderate intrahepatic biliary ductal dilatation is present, as before. T here is focal occlusion of the central aspect of the right hepatic duct near its confluence with the left hepatic duct. This appears to be secondary to the dominant mass within the inferomedial aspect o f the right hepatic lobe, which appears to demonstrate mild extrahepatic extension into the anson hep atis. The extrahepatic biliary tree is nondistended. Pancreas is normal in morphology, without adjac ent soft tissue edema. Pancreatic duct is normal in caliber, without developmental anomalies. Gallb ladder demonstrate multiple calculi within its lumen. Other solid organs: Hepatomegaly is present. As before, multiple hepatic masses are present, which de monstrate high T2 density. No adrenal nodules. Both kidneys are moderately atrophic, as before, with out hydronephrosis. Nodes and vessels: No retroperitoneal or mesenteric adenopathy by size criteria. Aorta and inferior vena cava are normal in size. Bowel and peritoneum: A moderate hiatal hernia is present. Unenhanced bowel loops are normal in constance edelmira. No free fluid. Lung bases: No basal pleural effusions. Heart size is normal. Bones and soft tissues: No ventral hernias. Bone marrow is of normal overall signal. IMPRESSION: 1. Severe hepatic metastatic disease. 2. The dominant mass within the inferomedial aspect of the right hepatic lobe appears to extend to th e anson hepatis, and causes focal occlusion of the central aspect of the right hepatic duct. 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 3. Cholelithiasis. 4. Hiatal hernia. Dictated by: Karina Mcmillan M.D. on 06/27/2016 at 13:55 Approved by: Karina Mcmillan M.D. on 06/27/2016 at 14:04
--- NOTE | 2016-06-27 15:36 | PCM.PNMED ---
Subjective Date of Service Jun 27, 2016 Subjective afebrile, continues to have pain on the left knee. Ongoing workup for metastatic disease of unknown primary. Workup/MRCP so far indicates possible cholangiocarcinoma. Exam Vital Signs Vital Sign - Last Date Time Temp Pulse Resp B/P Pulse Ox O2 Delivery O2 Flow Rate FiO2 06/27/16 10:07 36.7 111 18 107/67 95 Room Air Intake and Output 06/26/16 06/26/16 06/27/16 Cumulative From/Thru 15:00 23:00 07:00 06/26/16 11:50 - 06/27/16 06:02 Intake Total 1000 ml 800 ml 1800 ml Output Total 0 ml 650 ml 650 ml Balance 1000 ml 150 ml 1150 ml Intake Oral 0 ml 800 ml 800 ml IV Total 1000 ml 1000 ml Output Urine Total 0 ml 650 ml 650 ml # Bowel Movements 0 0 0 Exam General/Constitutional : Overweight female in bed comfortably. NAD Head / Eyes: Atraumatic, Normocephalic, sclerae slightly icteric Neck: Supple, Non-tender, Full range of motion, trachea is midline Chest : No chest wall tenderness, no deformity, normal respiratory effort Lung : Clear bilaterally, no crackle, no wheezing Abdomen / GI: Soft, Non-tender, No guarding, No rebound, No distention Heart : S1, S2, no gallop, no murmur Upper Extremities: Left shoulder sling in place, Neuro intact, No swelling, No tenderness. Lower Extremity / Pelvis / MS: Neurologic intact, Vascular intact Right Knee: Positive: Ecchymosis present (Anterior bruising), Neuro : Grossly non focal IVs and Medications Medications Reviewed: Medications were reviewed in detail Lab and Diagnostics Result Diagram: 06/27/1655 06/27/16654 X-Rays, CTs and MRIs PROCEDURE: MR ABDOMEN MRCP INDICATIONS: elev lft/poss hep mass IMPRESSION: 1. Severe hepatic metastatic disease. 2. The dominant mass within the inferomedial aspect of the right hepatic lobe appears to extend to the anson hepatis, and causes focal occlusion of the central aspect of the right hepatic duct. This finding may indicate cholangiocarcinoma. 3. Cholelithiasis. 4. Hiatal hernia. Dictated by: Karina Mcmillan M.D. on 06/27/2016 at 13:55 PROCEDURE: CT ABDOMEN AND PELVIS WITH CONTRAST TRAUMA (PNL 7509) INDICATIONS: RUQ pain, fall, abnormal LFT IMPRESSION: 1. No evidence of acute injury to the abdomen, nor pelvis. 2. Severe hepatic metastatic disease. 3. Moderate intrahepatic biliary ductal dilatation, possibly secondary to extrinsic compression of the intrahepatic biliary tree, secondary to the hepatic masses. 4. Complex cystic focus within the expected location of the uterus. This could be further assessed with pelvic ultrasound, if clinically indicated. 5. Moderate hiatal hernia. Dictated by: Karina Mcmillan M.D. on 06/26/2016 at 15:49 Assessment & Plan # suspected cholangitis , -Patient has leukocytoses, tachycardia( RVR) , elevated pro calcitonin, JABIER .looks like patient has infection. Source of infection unclear. It is possible she has cholangitis given the fact she has dilated biliary duct/ stagnant biliary flow and no other source of infection evident so far -Blood culture pending -Continue broad-spectrum antibiotics Zosyn awaiting culture -Gi Dr Reddy on board #. S/p fall and knee pain #. Acute renal Failure -Continue IV fluids #. 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 will discontinue warfarin, bridge with Lovenox once INr < 2, will plan for biopsy next week -Discussed case with and Dr Reddy # Afib with RVR -continue IV fluid and metoprolol 50 mg by mouth twice a day Chronic medical problems 1.- Atrial flutter/Afib : On Coumadin 2.-Diabetes 3.- Cataracts 4.- Hypertension 5. Arthritis 6.- Depression 7.- Anxiety Disposition: Pending clinical course VTE Mechanical Devices: Intermittant Pneumatic CD Logan Gregory MD Jun 27, 2016 15:36
[2016-06-27] MEDS ORDERED: Diltiazem 5 mg/mL 5 mL Inj IVPUSH ONE (15:55)
--- NOTE | 2016-06-27 15:58 | PCM.CHPMED ---
Subjective Date of Service: Jun 27, 2016 Provider requesting consult: Liang Matthew MD Primary Physician: Admitting Physician: Aaron Franco MD Primary Care Physician: Rob Walters MD Attending Physician: Aaron Franco MD Chief Complaint: Chief Complaint: REASON FOR GI CONSULT: Abnormal CT findings suggestive of hepatic malignancy, abnormal LFTs History of Present Illness: GASTROENTEROLOGY CONSULTATION NOTE Ms. Granados is an extremely pleasant 86 year old woman with history of recent left shoulder fracture and subluxation s/p closed reduction with intrarticular block secondary to a GLF that occurred on 06/25/2016, that presented to [facility] with knee pain, mild abdominal pain, and reports of unintentional 10 lb weight loss within recent weeks. She was admitted for evaluation and treatment of etiology of pain secondary to recent GLF, abnormal LFTs, abnormal findings on CT suggestive of hepatic malignancy. GI was asked to consult to assist in care. She states that she has been feeling well overall, and if it were not for the fall, she would not be in the hospital. Fall was secondary to a slip, denies any LOC, head strike, preceding dizziness or near-syncopal events. She does endorse a gradual decreased appetite, unintentional 10lb weight loss. Denies any fevers, chills, nausea, vomiting, changes in stool consistency or coloration. Reports occasional night sweats. Denies any hematemesis, melena, or hematochezia. She reports a history of an benign ovarian mass that is monitored by [facility]. PCP is Dr. Walters. She states she has never been informed of abnormal liver testing in the past. Left shoulder and left knee pain continue. Daughters are present at bedside for initial examination in ED, and they state that they have noticed the weight loss, in addition to intermittent changes in skin coloration to reflect a yellowish hue. These changes have been noted since February 2016. Review of Systems: Complete ROS obtained; pertinent positives and negatives as noted in HPI PMH Past Medical History atrial flutter diabetes cataracts hypertension UTI arthritis depression anxiety Left shoulder subluxation and fracture s/p closed reduction and intra-articular block Bedside Blood Glucose: 157 Surgical History Reports: Appendectomy, Cataract surgery Closed reduction and intra-articular block left shoulder Home Medications From admission note: Citalopram (Citalopram) 20 Mg Tablet 20 MG PO DAILY Estradiol (Estrace) 42.5 Gm Cream.appl 1 G VG /Sundays Losartan Potassium (Losartan Potassium) 25 Mg Tablet 25 MG PO DAILY Lovastatin (Lovastatin) 40 Mg Tablet 80 MG PO HS Metoprolol Tartrate (Metoprolol Tartrate) 50 Mg Tablet 50 MG PO BID Spironolactone (Spironolactone) 25 Mg Tablet 25 MG PO DAILY Warfarin Sodium (Warfarin Sodium) 5 Mg Tablet 2.5 MG PO Daily except Scheduled PRN Docusate Sodium (Docusate Sodium) 250 Mg Capsule 250 MG PO DAILY PRN PRN For Constipation Hydrocodone-Acetaminophen 5-325 mg (Hydrocodone-Acetaminophen 5-325 mg) 1 Each Tablet 1.5 TABLET PO Q6H PRN PRN For Pain Allergies: Coded Allergies: HEIDY Inhibitors (Verified Allergy, Severe, ANGIOEDEMA, 06/26/16) Sulfa (Sulfonamide Antibiotics) (Verified Allergy, Intermediate, 06/26/16) morphine (Verified Allergy, Intermediate, itch, 06/26/16) cephalexin (Verified Allergy, Unknown, 06/26/16) nitrofurantoin (Verified Allergy, Unknown, 06/25/16) Social History Hx Alcohol Use: YesAlcoholic Drinks Per Day: wine occasionallyHx Substance Use : NoHx Tobacco Use: No Smoking Status: Never Smoker Living Arrangement: with Family (Son) Exam Vital Signs Vital Sign - Last Date Time Temp Pulse Resp B/P Pulse Ox O2 Delivery O2 Flow Rate FiO2 06/27/16 10:07 36.7 111 18 107/67 95 Room Air Intake and Output 06/26/16 06/26/16 06/27/16 Cumulative From/Thru 15:00 23:00 07:00 06/26/16 11:50 - 06/27/16 06:02 Intake Total 1000 ml 800 ml 1800 ml Output Total 0 ml 650 ml 650 ml Balance 1000 ml 150 ml 1150 ml Intake Oral 0 ml 800 ml 800 ml IV Total 1000 ml 1000 ml Output Urine Total 0 ml 650 ml 650 ml # Bowel Movements 0 0 0 General: Alert, Oriented X3, Cooperative, No Acute Distress Head: Normal, Facial Expression & Appearance (symmetric) Eyes: EOMI, Scleral Anicteric Nose: Mucous Membr Moist/[place] Mouth: Mucous Membr Moist/[place] Chest & Lungs: Auscultation (clear bilaterally) Cardiovascular: Regular Rate/Rhythm, No Murmurs/Rubs/Gallops Pulses: Radial (equal and bilateral) Abdomen: Non-tender, Non-distended, Soft Extremities: Warm, No Edema, Other (Left shoulder sling in place) Skin: Other (slight jaundice coloration) Neurological: Cranial Nerves 2-12 Intact, Normal Speech (without slur) Lab and Diagnostics Result Diagram: 06/27/1665406/27/16654 Assessment & Plan Assessment GASTROENTEROLOGY CONSULTATION NOTE Ms. Granados is an extremely pleasant 86 year old woman with history of recent left shoulder fracture and subluxation s/p closed reduction with intrarticular block secondary to a GLF that occurred on 06/25/2016, that presented to [facility] with knee pain, mild abdominal pain, and reports of unintentional 10 lb weight loss within recent weeks. She was admitted for evaluation and treatment of etiology of pain secondary to recent GLF, abnormal LFTs, abnormal findings on CT suggestive of hepatic malignancy. GI was asked to consult to assist in care. CT A/P w/contrast 06/26: No evidence of acute injury to the abdomen, nor pelvis. Severe hepatic metastatic disease. Moderate intrahepatic biliary ductal dilatation, possibly secondary to extrinsic compression of the intrahepatic biliary tree, secondary to the hepatic masses. Complex cystic focus within the expected location of the uterus. This could be further assessed with pelvic ultrasound, if clinically indicated. Moderate hiatal hernia. MRCP 06/27: Severe hepatic metastatic disease. The dominant mass within the inferomedial aspect of the right hepatic lobe appears to extend to the anson hepatis, and causes focal occlusion of the central aspect of the right hepatic duct. This finding may indicate cholangiocarcinoma. Cholelithiasis. Hiatal hernia. Imaging was reviewed with radiology. Assessments - Elevated LFTs likely secondary to mass effect as noted in MRCP. Focal occlusion at the right hepatic duct. - Abnormal CT findings suggestive of hepatic tumor - Unintentional weight loss - Supratherapeutic INR Plan - Await results tumor markers: AFP, CA19-9, CEA - Recommend oncology consultation - Will assist in determining next best step in diagnosis - Requested patient and family to provide information about previous VM providers for accurate records request about reported gynecological mass - OK to PA if medically stable, as she can follow up outpatient for continued work up of this abnormal finding - FU with [facility] Lemon in TWO weeks - FU with oncology as recommended - I spoke with the [facility] gastroenterology Dr. Nolasco. This is to arrange outpatient EUS ERCP or spyglass to determine benefit of stenting and dilating the dominant stricture. [facility] T[facility] review the MRI CT scan and labs. He agreed that agent does not CT-guided liver biopsy. They could do ERCP and spyglass to obtain tissue sample and stent. This would be safer than CT-guided liver biopsy. If the LFT remains stable, as could be done as an outpatient. If LFT increases significantly then they will accept transfer this patient as an inpatient. Otherwise, patient should be hearing from them this Thursday. If they do not hear from them by Thursday, patient was asked to notify us. I spoken with the hospitalist and he agreed to cancel CT-guided biopsy and follow the liver function tests for couple more days. Appreciate time and recs per oncology for biopsy approaches, if patient wishes to pursue. Thank you for this consult. Please do not hesitate to contact us with any questions or concerns. We will sign off at this time, and we look forward to seeing her in our clinic in 2 weeks. I have seen and examined the patient with the resident. Agree with above. Total time: 60 minutes Problems: VTE Mechanical Devices: Intermittant Pneumatic CD Nelly Quach DO Jun 27, 2016 11:01 Nathan Reddy MD Jun 28, 2016 10:15
--- NOTE | 2016-06-27 16:13 | NUR ---
Social Work- Initial Assessment Data: See Initial Assessment. Pt is a 86 year old female admitted 06/26/16 for hepatic metastatic disease and left shoulder fracture per H&P. Pt's insurance is [employer] and [employer]. Pt's PCP is Rob Walters MD. ONEIL met with pt and family (daughter Donna and son in law Cristhian Duron [phone], son Danny and amparo in law) at bedside to discuss discharge plan, SW role explained. Pt alert and oriented x3. Pt resides in an apartment above her son Danny's garage where she remained independent with her ADLs prior to admission. Pt uses a cane at base and drives. Pt has no HH history. Pt was at [facility] for rehab briefly after a hip replacement. Pt has no LTC or VA benefits. Pt has a completed DPOA but states that it needs to be revised. SW provided DPOA paperwork to pt. SW spoke extensively with pt and family regarding discharge. PT evaluation is pending. Donna and Cristhian expressed concerns that pt will not be able to return home alone or return home with family members to care for pt. SW educated family extensively regarding [facility] 3 midnight rule, private pay caregiving, private pay SNF, home health, and outpt follow up appointments. SW encouraged family to consider extermination inspector care plan after hospitalization. SW provided Senior Resource Guide to family. SW provided private pay SNF [facility] quotes to family. SNF choice list provided to family. SW to follow up regarding SNF choice. SW will continue to follow. Assessment: Pt who may discharge to private pay SNF. Plan: PT evaluation is pending. ONEIL provided Senior Resource Guide to family. ONEIL provided private pay SNF [facility] quotes to family. SNF choice list provided to family. Pt may discharge to private pay SNF. SW to follow up regarding SNF choice. SW will continue to follow. RINKU Waldron Addendum: 06/27/16 at 1628 by MILI BRIGITTE SS Amended: Links added.
[2016-06-27] MEDS ORDERED: Diltiazem 5 mg/mL 5 mL Inj IVPUSH PRN (16:35)
[2016-06-27] MEDS: Piperacillin-Tazo 3.375 Gm Inj 3.375 GM in Dextrose 5% Minibag Plus 50 ML IV SCH ×2 (17:26→22:51)
--- NOTE | 2016-06-27 18:13 | NUR ---
Pain Pt rated pain between 6-7/10 in her arm and knee. MD switched pt to po pain medication. Pt became drowsy, place pt on RETAIL DEPARTMENT RESET. Pt's O2 sats in low 90s. Placed pt on 1L via NC. Encouraged pt to cough and take deep breaths. Will continue to monitor.
--- NOTE | 2016-06-27 18:16 | NUR ---
Tele Pt has had periods of sinus tachycardia. fuel verification technician called and state pt was in the 140s. MD notified. MD ordered one time dose of Cardizem. Continued to monitor pt and she was anywhere from 90's-120's. Notified MD. Cardizem was held. ordered a prn order of Cardizem for sustained HR > 130s for 5 min. fuel verification technician notified. MD also ordered for evening dose of metoprolol to be given at 1730. Pt denies chest pain or SOB. Will continue to monitor.
[2016-06-28] VITALS (7 sets, daily range): BP systolic 102–135; BP diastolic 61–87; PULSE 101–134; RESP 16–20; O2SAT 97–99
--- NOTE | 2016-06-28 03:01 | NUR ---
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
[2016-06-28 08:15] LABS: BASOPHILS % (AUTO) 0.1 % (0-3); EOSINOPHILS % (AUTO) 0.9 % (0-5); MONOCYTES % (AUTO) 7.7 % (4-12); Mean Corpuscular Hemoglobin 30.5 pg (27.0-35.0); Mean Corpuscular Volume 93.8 fL (81-100); NEUTROPHILS % (AUTO) 83.3 % (40-74); Platelet Count 174 bil/L (150-400)
[2016-06-28] MEDS ORDERED: Furosemide 10 mg/mL 2 mL Inj IVPUSH ONE (08:15)
[2016-06-28] MEDS: Piperacillin-Tazo 3.375 Gm Inj 3.375 GM in Dextrose 5% Minibag Plus 50 ML IV SCH ×3 (08:30→18:01)
[2016-06-28 08:34] LABS: INR 1.57 ratio
[2016-06-28 08:43] LABS: Magnesium 1.7 mg/dL (1.6-2.6); Phosphorus 2.5 mg/dL (2.5-4.9)
--- NOTE | 2016-06-28 09:11 | NUR ---
OLAF signed. Tanya Álvarez CHILD WELFARE ASSISTANT
--- NOTE | 2016-06-28 12:33 | PCM.PNMED ---
Subjective Date of Service Jun 28, 2016 Subjective Patient denies abdominal pain bloating the stools black stools. Tolerating diet. No significant events overnight Exam Vital Signs Vital Sign - Last Date Time Temp Pulse Resp B/P Pulse Ox O2 Delivery O2 Flow Rate FiO2 06/28/16 09:58 122 06/28/16 07:35 122/70 06/28/16 06:20 36.8 20 99 Nasal Cannula 2.00 Intake and Output 06/27/16 06/27/16 06/28/16 Cumulative From/Thru 15:00 23:00 07:00 06/26/16 11:50 - 06/28/16 03:58 Intake Total 1732 ml 100 ml 3632 ml Output Total 450 ml 1100 ml Balance 1282 ml 100 ml 2532 ml Intake Oral 1200 ml 2000 ml IV Total 532 ml 100 ml 1632 ml Output Urine Total 450 ml 1100 ml # Bowel Movements 0 0 Exam Patient is alert oriented comfortable Head and neck minimal icterus Lungs clear Cardiovascular irregular S1-S2 Abdomen soft nontender nondistended with normal active bowel sounds Skin minimal jaundice Lab and Diagnostics Result Diagram: 06/28/16 0755 06/28/16 0755 X-Rays, CTs and MRIs PROCEDURE: MR ABDOMEN MRCP INDICATIONS: elev lft/poss hep mass IMPRESSION: 1. Severe hepatic metastatic disease. 2. The dominant mass within the inferomedial aspect of the right hepatic lobe appears to extend to the anson hepatis, and causes focal occlusion of the central aspect of the right hepatic duct. This finding may indicate cholangiocarcinoma. 3. Cholelithiasis. 4. Hiatal hernia. Dictated by: Karina Mcmillan M.D. on 06/27/2016 at 13:55 PROCEDURE: CT ABDOMEN AND PELVIS WITH CONTRAST TRAUMA (PNL 7509) INDICATIONS: RUQ pain, fall, abnormal LFT IMPRESSION: 1. No evidence of acute injury to the abdomen, nor pelvis. 2. Severe hepatic metastatic disease. 3. Moderate intrahepatic biliary ductal dilatation, possibly secondary to extrinsic compression of the intrahepatic biliary tree, secondary to the hepatic masses. 4. Complex cystic focus within the expected location of the uterus. This could be further assessed with pelvic ultrasound, if clinically indicated. 5. Moderate hiatal hernia. Dictated by: Karina Mcmillan M.D. on 06/26/2016 at 15:49 Assessment & Plan Impression - Elevated LFTs likely secondary to mass effect as noted in MRCP. Focal occlusion at the right hepatic duct. I spoke with Dr. Dimitris Nolasco at the [facility] gastroenterology service about his patient. I gave [facility] blood test results and imaging study were pushed. After reviewing, we agree that the patient needs outpatient follow-up for EUS ERCP spyglass to obtain tissue biopsy and possible dilation and stenting of the prominent stricture. Patient has no pain no fevers and borderline white blood cell count. I do not believe patient has cholangitis. [facility]a Tinsley agrees as well. However I will defer the antibiotic used to the primary care service testing case there is a possibly another source of infection. Verna LIN should be calling the patient on Thursday and if not see if called by Thursday, patient was asked to contact my office and my office phone number were given. We will therefore cancel the CT-guided biopsy. Plan discuss with the primary service. Plan - Await results tumor markers: AFP, CA19-9, CEA - Recommend oncology consultation - Requested patient and family to provide information about previous VM providers for accurate records request about reported gynecological mass - FU with [facility] Lemon in after [facility] evaluation. - FU with oncology as recommended I spent at least 45 minutes with the patient and coordinating care VTE Mechanical Devices: Intermittant Pneumatic CD Nathan Reddy MD Jun 28, 2016 12:33
--- NOTE | 2016-06-28 13:42 | NUR ---
Evaluation completed. Please go to "Notes" then click on "Assessments and Notes" (bottom left corner of screen). Then select appropriate discipline tab on top of screen.
--- NOTE | 2016-06-28 15:12 | NUR ---
Vitals Pt continued to need oxygen overnight. Pt on 2L via NC with O2 sats 100. When titrated down pt's O2 sats would drop. MD notified and ordered 20mg of Lasix. Titrated pt off O2 this afternoon and pt's O2 sats are 98% on RA. Will continue to monitor.
--- NOTE | 2016-06-28 15:13 | PCM.PNMED ---
Subjective Date of Service Jun 28, 2016 Subjective Remains afebrile. On and off tachycardia/RVR. Had brief dyspnea requiring oxygen which improved after Lasix. Exam Vital Signs Vital Sign - Last Date Time Temp Pulse Resp B/P Pulse Ox O2 Delivery O2 Flow Rate FiO2 06/28/16 14:43 37.3 115 16 106/65 98 Room Air 06/28/16 06:20 2.00 Intake and Output 06/27/16 06/27/16 06/28/16 Cumulative From/Thru 15:00 23:00 07:00 06/26/16 11:50 - 06/28/16 03:58 Intake Total 1732 ml 100 ml 3632 ml Output Total 450 ml 1100 ml Balance 1282 ml 100 ml 2532 ml Intake Oral 1200 ml 2000 ml IV Total 532 ml 100 ml 1632 ml Output Urine Total 450 ml 1100 ml # Bowel Movements 0 0 Exam General/Constitutional : Overweight female in bed comfortably. NAD Head / Eyes: Atraumatic, Normocephalic, sclerae slightly icteric Neck: Supple, Non-tender, Full range of motion, trachea is midline Chest : No chest wall tenderness, no deformity, normal respiratory effort Lung : Clear bilaterally, no crackle, no wheezing Abdomen / GI: Soft, Non-tender, No guarding, No rebound, No distention Heart : S1, S2, no gallop, no murmur Upper Extremities: Left shoulder sling in place, Neuro intact, No swelling, No tenderness. Lower Extremity / Pelvis / MS: Neurologic intact, Vascular intact Right Knee: Positive: Ecchymosis present (Anterior bruising), Neuro : Grossly non focal IVs and Medications Medications Reviewed: Medications were reviewed in detail Lab and Diagnostics Result Diagram: 06/28/16 0755 06/28/16 0755 X-Rays, CTs and MRIs PROCEDURE: MR ABDOMEN MRCP INDICATIONS: elev lft/poss hep mass IMPRESSION: 1. Severe hepatic metastatic disease. 2. The dominant mass within the inferomedial aspect of the right hepatic lobe appears to extend to the anson hepatis, and causes focal occlusion of the central aspect of the right hepatic duct. This finding may indicate cholangiocarcinoma. 3. Cholelithiasis. 4. Hiatal hernia. Dictated by: Karina Mcmillan M.D. on 06/27/2016 at 13:55 PROCEDURE: CT ABDOMEN AND PELVIS WITH CONTRAST TRAUMA (PNL 7509) INDICATIONS: RUQ pain, fall, abnormal LFT IMPRESSION: 1. No evidence of acute injury to the abdomen, nor pelvis. 2. Severe hepatic metastatic disease. 3. Moderate intrahepatic biliary ductal dilatation, possibly secondary to extrinsic compression of the intrahepatic biliary tree, secondary to the hepatic masses. 4. Complex cystic focus within the expected location of the uterus. This could be further assessed with pelvic ultrasound, if clinically indicated. 5. Moderate hiatal hernia. Dictated by: Karina Mcmillan M.D. on 06/26/2016 at 15:49 Assessment & Plan #. 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 Dimitris Nolasco at [facility] gastro[facility] were [facility]. After reviewing, they agree that the patient needs outpatient follow-up for EUS ERCP spyglass to obtain tissue biopsy and possible dilation and stenting of the prominent stricture.[facility] Tinsley will call patient on Thursday to arrange appointment.daughter to call Dr Reddy office if she doesn't get a call from .Dr Reddy gave the number to call # Initial concern for cholangitis , but unlikely now -Patient has leukocytoses, tachycardia( RVR) , elevated pro calcitonin, JABIER .looks like patient has infection. Source of infection unclear. It is possible she has cholangitis given the fact she has dilated biliary duct/ stagnant biliary flow and no other source of infection evident so far -Blood culture NGTD x2 -Continue broad-spectrum antibiotics Zosyn for now ,will consider discontinuing after repeat pro calcitonin later today. -Gi Dr Reddy on board #. S/p fall and knee pain -PT eval requested #. Acute renal Failure ,resolved -discontinue IV fluids # Afib with RVR -continue IV fluid and metoprolol 50 mg by mouth twice a day Chronic medical problems 1.- Atrial flutter/Afib : On Coumadin ,now on hold 2.-Diabetes 3.- Cataracts 4.- Hypertension 5. Arthritis 6.- Depression 7.- Anxiety Disposition: possible discharge tomorrow to [facility] for PT .she needs to f/u at for ERCP discussed code status with patient in the presence of 5 family members including 2 daughters.pt is DNR/DNI,filled in POLST form VTE Mechanical Devices: Intermittant Pneumatic CD Logan Gregory MD Jun 28, 2016 15:12
--- NOTE | 2016-06-28 15:15 | NUR ---
Temp Pt's temp is slightly elevated at 37.6. MD notified. Will continue to monitor.
--- NOTE | 2016-06-28 15:29 | NUR ---
Social Work- Readiness for Discharge Data: EMR reviewed. Pt is on day 2 of hospitalization for left shoulder fracture per H&P. Pt is not medically stable, anticipate 1-2 more days. Pt to receive follow up at [facility] regarding her hepatic metastatic disease. PT assessed pt, recommending SNF at this time. SW followed up with pt regarding SNF recommendation and MCR eligibility beginning tomorrow. SNF choice list provided. Pt chose [facility]. SW provided referral and access to [facility]. SW spoke with Danna, admissions at [facility] [phone], who is agreeable to accepting pt at discharge with MD Walters to follow. Paperwork in chart. PASRR in folder. All updated and agreeable to plan. SW will continue to follow. Assessment: Pt who would benefit from SNF. Plan: Pt to discharge to [facility] (A) with MD Walters to follow. Paperwork in chart. PASRR in folder. SW will continue to follow. RINKU Waldron
[2016-06-29] VITALS (8 sets, daily range): BP systolic 86–135; BP diastolic 57–77; PULSE 80–120; RESP 16–20; O2SAT 96–99
[2016-06-29] MEDS: Piperacillin-Tazo 3.375 Gm Inj 3.375 GM in Dextrose 5% Minibag Plus 50 ML IV SCH ×2 (01:32→08:00)
--- NOTE | 2016-06-29 03:32 | NUR ---
PAIN; restless night. Oxycodone given and repositioned frequently. Room air, 97%. Left arm in a sling with pillow splinting arm. Ortho checks wnl.
[2016-06-29 08:11] LABS: BASOPHILS % (AUTO) 0.2 % (0-3); EOSINOPHILS % (AUTO) 2.4 % (0-5); MONOCYTES % (AUTO) 8.9 % (4-12); Mean Corpuscular Hemoglobin 30.9 pg (27.0-35.0); Mean Corpuscular Volume 91.9 fL (81-100); Platelet Count 212 bil/L (150-400)
[2016-06-29 09:24] LABS: Magnesium 1.8 mg/dL (1.6-2.6); Phosphorus 3.2 mg/dL (2.5-4.9)
[2016-06-29 10:55] LABS: INR 1.59 ratio
--- NOTE | 2016-06-29 11:40 | NUR ---
OK to leave IV out IV leaking and not patent. Per MD Gregory; ok to leave IV out. Pt most likely DC tomorrow morning. Care continues
--- NOTE | 2016-06-29 13:06 | PCM.PNMED ---
Subjective Date of Service Jun 29, 2016 Subjective Remains afebrile, knee pain controlled. JABIER noted today. Empiric Antibiotics are discontinued as there is no evidence of infection. Exam Vital Signs Vital Sign - Last Date Time Temp Pulse Resp B/P Pulse Ox O2 Delivery O2 Flow Rate FiO2 06/29/16 11:04 36.9 80 18 86/57 97 Room Air 06/28/16 06:20 2.00 Intake and Output 06/28/16 06/28/16 06/29/16 Cumulative From/Thru 15:00 23:00 07:00 06/26/16 11:50 - 06/29/16 06:31 Intake Total 300 ml 1062 ml 500 ml 5494 ml Output Total 1000 ml 1450 ml 840 ml 4390 ml Balance -700 ml -388 ml -340 ml 1104 ml Intake Oral 300 ml 800 ml 400 ml 3500 ml IV Total 262 ml 100 ml 1994 ml Output Urine Total 1000 ml 1450 ml 840 ml 4390 ml # Bowel Movements 0 0 Exam General/Constitutional : Overweight female in bed comfortably. NAD Head / Eyes: Atraumatic, Normocephalic, sclerae slightly icteric Neck: Supple, Non-tender, Full range of motion, trachea is midline Chest : No chest wall tenderness, no deformity, normal respiratory effort Lung : Clear bilaterally, no crackle, no wheezing Abdomen / GI: Soft, Non-tender, No guarding, No rebound, No distention Heart : S1, S2, no gallop, no murmur Upper Extremities: Left shoulder sling in place, Neuro intact, No swelling, No tenderness. Lower Extremity / Pelvis / MS: Neurologic intact, Vascular intact Right Knee: Positive: Ecchymosis present (Anterior bruising), Neuro : Grossly non focal IVs and Medications Medications Reviewed: Medications were reviewed in detail Lab and Diagnostics Result Diagram: 06/29/16 0755 06/29/16 0755 X-Rays, CTs and MRIs PROCEDURE: MR ABDOMEN MRCP INDICATIONS: elev lft/poss hep mass IMPRESSION: 1. Severe hepatic metastatic disease. 2. The dominant mass within the inferomedial aspect of the right hepatic lobe appears to extend to the anson hepatis, and causes focal occlusion of the central aspect of the right hepatic duct. This finding may indicate cholangiocarcinoma. 3. Cholelithiasis. 4. Hiatal hernia. Dictated by: Karina Mcmillan M.D. on 06/27/2016 at 13:55 PROCEDURE: CT ABDOMEN AND PELVIS WITH CONTRAST TRAUMA (PNL 7509) INDICATIONS: RUQ pain, fall, abnormal LFT IMPRESSION: 1. No evidence of acute injury to the abdomen, nor pelvis. 2. Severe hepatic metastatic disease. 3. Moderate intrahepatic biliary ductal dilatation, possibly secondary to extrinsic compression of the intrahepatic biliary tree, secondary to the hepatic masses. 4. Complex cystic focus within the expected location of the uterus. This could be further assessed with pelvic ultrasound, if clinically indicated. 5. Moderate hiatal hernia. Dictated by: Karina Mcmillan M.D. on 06/26/2016 at 15:49 Assessment & Plan #. 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 Dimitris Nolasco at the [facility] gastroenterology service about this patient. he gave [facility] blood test results and imaging study were pushed. 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 and no source of infection evident so far. Initially treated with Zosyn due to concern of cholangitis. Patient remains afebrile. No RUQ pain. very unlikely she has cholangitis. Discontinued empiric Zosyn. -Blood culture NGTD x2 -Gi Dr Reddy on board #. S/p fall and knee pain -PT recommended [facility] facility -pain controlled #. Acute renal Failure ,noted toda -discontinue IV fluids -Monitor today # Afib with RVR -Home dose metoprolol 50 mg by mouth twice a day. Increased to 75 mg po bid -Initially placed her on Lovenox due to planned liver biopsy in the next few days but liver biopsy canceled and plan is to send her to outpatient for ERCP.will restart warfarin .may need to start at lower doses given newly diagnosed liver mets and serotherapeutic INR on admission #.- Hypertension -Patient on losartan and spironolactone at home. Will resume spironolactone only for now. Chronic medical problems #.- Atrial flutter/Afib : On Coumadin ,now on hold #.-Diabetes #.- Cataracts #. Arthritis #.- Depression #.- Anxiety Disposition: possible discharge tomorrow to [facility] for PT .she needs to f/u at for ERCP discussed code status with patient in the presence of 5 family members including 2 daughters.pt is DNR/DNI,filled in POLST form will keep her one more day to monitor JABIER VTE Mechanical Devices: Intermitt[employer] CD Logan Gregory MD Jun 29, 2016 13:06
[2016-06-30 00:20] VITALS: BP 116/73; PULSE 79; RESP 16; O2SAT 97
--- NOTE | 2016-06-30 05:18 | NUR ---
Pain Pt reported arm pain up to 3/10 (while not moving) and was given 1 tab of Oxycodone 5mg with good relief. Upon reassessment, pt sleeping and appears comfortable. Left arm remains in sling.
[2016-06-30 05:37] VITALS: BP 131/79; PULSE 82; RESP 15; O2SAT 91
[2016-06-30 06:15] LABS: BASOPHILS % (AUTO) 0.2 % (0-3); EOSINOPHILS % (AUTO) 3.1 % (0-5); MONOCYTES % (AUTO) 12.3 % (4-12); Mean Corpuscular Hemoglobin 30.8 pg (27.0-35.0); Mean Corpuscular Volume 92.2 fL (81-100); NEUTROPHILS % (AUTO) 72.3 % (40-74); Platelet Count 236 bil/L (150-400)
[2016-06-30 06:26] LABS: INR 1.53 ratio
[2016-06-30 08:36] VITALS: BP 98/68; PULSE 93; RESP 18; O2SAT 100
[2016-06-30 09:17] VITALS: PULSE 100
--- NOTE | 2016-06-30 10:31 | PCM.DIMED ---
Discharge Instructions Date of Service Jun 30, 2016 Dates of Hospitalization Jun 26, 2016 at 17:35 Discharge Diagnosis Discharge Diagnosis #. 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 S/p fall and knee pain # Left shoulder fracture ,acute #. Acute kidney injury ,resolved # Afib with RVR #.- Hypertension Chronic medical problems #.- Atrial flutter/Afib : #.-Diabetes #.- Cataracts #. Arthritis #.- Depression #.- Anxiety Diet Low fat, Low Sodium, Heart Healthy Activity Other (continue physical therapy at custodial facility) Call your provider Fever or Chills, Shortness of breath, Bleeding, Chest pain, Vomitting, Excessive diarrhea, Weakness (unilateral) Patient Instructions You were hospitalized due to left knee pain due to fall. 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 Dr Reddy spoke with Dr. Dimitris Nolasco at the [facility] gastroenterology . 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 You had rapid atrial fibrillation.I have increased your metoprolol 75 mg milligrams twice daily from 50. You take spironolactone and losartan for hypertension. I have stopped losartan due to concern for kidney injury. May resume after talking to your PCP. we resumed your warfarin at a lower dose of 2 mg daily given new diagnosis of metastatic liver disease. Follow-up plan Please follow-up with Dr Dimitris Nolasco at the [facility] in 1 week. Please follow-up with PCP in 1-2 weeks. You may follow-up with Dr Reddy , gastroenterology meanwhile if any concern until you are seen at [facility]. Follow-up Provider: Rob Walters MD Follow-up with PCP in: 1 week Follow-up in: 1 week (Dr Dimitris Nolasco at the [facility]) Mid-level Provider (F9): Nathan Reddy MD Follow-up with Mid-level in: 3 weeks Logan Gregory MD Jun 30, 2016 10:31
[2016-06-30] MEDS ORDERED: WARF5TAB7 PO (10:33)
[2016-06-30] MEDS ORDERED: METO50TA3 PO (10:33)
[2016-06-30] MEDS ORDERED: OXYC5TAB72 PO (10:33)
--- NOTE | 2016-06-30 11:43 | NUR ---
Social Work: Discharge Data & Assessment: SW spoke with patient's daughter Donna Duron and notified her that the patient would discharge to [facility] today via cabulance. Patient will be picked up at 2 p.m. SW will continued to follow. Plan: Patient will discharge to [facility] via Cab[facility]. Verna Grajeda LMSW, COCO
--- NOTE | 2016-06-30 13:11 | PCM.DC.MED ---
Discharge Summary Date of Service Jun 30, 2016 Dates of Hospitalization Date of Hospital Admission Jun 26, 2016 at 17:35 Date of Discharge: Jun 30, 2016 Providers: Admitting Physician: Aaron Franco MD Primary Care Physician: Rob Walters MD Attending Physician: Aaron Franco MD Diagnosis at Time of Discharge Diagnosis at Time of Discharge #. 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 S/p fall and knee pain # Left shoulder fracture ,acute #. Acute kidney injury ,resolved # Afib with RVR #.- Hypertension Chronic medical problems #.- Atrial flutter/Afib : #.-Diabetes #.- Cataracts #. Arthritis #.- Depression #.- Anxiety Consultations Gi Dr Reddy,also case discussed with GI Dr Nolasco at [facility] I discussed case with Dr Skelton on the phone Procedures XRay, CTs & MRIs PROCEDURE: MR ABDOMEN MRCP INDICATIONS: elev lft/poss hep mass IMPRESSION: 1. Severe hepatic metastatic disease. 2. The dominant mass within the inferomedial aspect of the right hepatic lobe appears to extend to the anson hepatis, and causes focal occlusion of the central aspect of the right hepatic duct. This finding may indicate cholangiocarcinoma. 3. Cholelithiasis. 4. Hiatal hernia. Dictated by: Karina Mcmillan M.D. on 06/27/2016 at 13:55 PROCEDURE: CT ABDOMEN AND PELVIS WITH CONTRAST TRAUMA (PNL 7509) INDICATIONS: RUQ pain, fall, abnormal LFT IMPRESSION: 1. No evidence of acute injury to the abdomen, nor pelvis. 2. Severe hepatic metastatic disease. 3. Moderate intrahepatic biliary ductal dilatation, possibly secondary to extrinsic compression of the intrahepatic biliary tree, secondary to the hepatic masses. 4. Complex cystic focus within the expected location of the uterus. This could be further assessed with pelvic ultrasound, if clinically indicated. 5. Moderate hiatal hernia. Dictated by: Karina Mcmillan M.D. on 06/26/2016 at 15:49 Brief History per HPI by Dr Franco on on 06/26/16 Disease at 86 years old elderly female past medical history of hypertension, diabetes type II, anxiety, A. fib and flutter on Coumadin, who presented to the hospital today complaining about the pain. This patient was in the hospital yesterday after secretions and a mechanical fall at home and had a left shoulder dislocation and fracture of her humerus. She was seen by orthopedics to proceed to a close reduction and patient was discharged home. She is brought back to the hospital today by her daughter due to knee pain. There was also some concern regarding pain at right side of her abdomen, no nausea, no vomiting, no change in bowel habits. Patient endorses a 10 pounds weight loss over the past month also. X-ray of the knee in the emergency room showed no fracture. Laboratory tests shows elevated LFT, bilirubin, and patient is in acute renal failure. A CT scan of the abdomen showed extensive metastasis disease to the liver with intrahepatic dilation which may reflect possible extrahepatic the dilation by masses/Metastasis Hospital Course #. 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 Dimitris Nolasco at the [facility] gastroenterology service about this patient. he gave [facility] blood test results and imaging study were pushed. 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 will call patient on Thursday06/30/16 to arrange appointment.daughter to call Dr Reddy office if she doesn't get a call from .Dr Reddy gave the number to call -I had a long discussion with patient and daughter Donna at bedside today,Donna understands the grave prognosis cholangiocarcinoma has. She wants to discuss with PCP Dr Walters and final decision whether to proceed with diagnostic procedure i.e ERCP with spyglass and possible therapeutic stenting at [facility] or opt to hospice before making tissue diagnoses. I spoke with Dr. Walters. He states he is happy to assist her with their decision. He had visited the patient here in hospital yesterday. He will go visit patient at [facility] and assist them on their decision. -Today's lab: Sodium 142, creatinine 1.1, TBili 2.8, AST 50, ALT 39, alkaline phosphatase 377, albumin 2.9,CEA [place] 232,[place]19[place] [address] # Initial concern for cholangitis , but unlikely now -Patient had leukocytoses, tachycardia( RVR) , elevated pro calcitonin, JABIER . and no source of infection evident so far. Initially treated with Zosyn due to concern of cholangitis. Patient remains afebrile. No RUQ pain. very unlikely she has cholangitis. Discontinued empiric Zosyn. -Blood culture NGTD x2 -Gi Dr Reddy GI #. S/p fall and knee pain -PT recommended correction facility -pain controlled # left shoulder fracture ,acute -on sling support -pain controlled with oxycodone #. JABIER ,resolved -discontinued IV fluids # Afib with RVR -Home dose metoprolol 50 mg by mouth twice a day. Increased to 75 mg po bid for better rate control -Initially placed her on Lovenox due to planned liver biopsy in the next few days but liver biopsy canceled and plan is to send her to outpatient for ERCP. restarted warfarin at lower doses given newly diagnosed liver mets and serotherapeutic INR on admission #.- Hypertension -Patient on losartan and spironolactone at home. resumed spironolactone only for now. May resume losartan if the BP is high after talking to PCP. Chronic medical problems #.- Atrial flutter/Afib : #.-Diabetes #.- Cataracts #. Arthritis #.- Depression #.- Anxiety Disposition: discharge to [facility] . discussed code status with patient in the presence of 5 family members including Donna her daughter.pt is DNR/DNI,filled in POLST form Condition on discharge stable Exam Vital Signs (Last) Date Time Temp Pulse Resp B/P Pulse Ox O2 Delivery O2 Flow Rate FiO2 06/30/16 09:17 100 06/30/16 08:36 36.6 18 98/68 100 Room Air 06/28/16 06:20 2.00 Exam General/Constitutional : Overweight female in bed comfortably. jaundiced Head / Eyes: Atraumatic, Normocephalic, sclerae slightly icteric Neck: Supple, Non-tender, Full range of motion, trachea is midline Chest : No chest wall tenderness, no deformity, normal respiratory effort Lung : Clear bilaterally, no crackle, no wheezing Abdomen / GI: Soft, Non-tender, No guarding, No rebound, No distention Heart : S1, S2, no gallop, no murmur Upper Extremities: Left shoulder sling in place, Neuro intact, No swelling, No tenderness. Lower Extremity / Pelvis / MS: Neurologic intact, Vascular intact Right Knee: Positive: Ecchymosis present (Anterior bruising), Neuro : Grossly non focal Test 06/26/16 14:40 06/26/16 15:04 06/26/16 19:50 06/27/16 06:55 Lactic Acid Level 1.7mmol/L (0.4-2.0) Lipase 31U/L (13-60) Hold Duron Top Tube Received (Received) Urine Color Dark yellow (YELLOW) Urine Appearance Hazy (CLEAR,HAZY) Urine pH 5.5 (5.0-8.0) Urine Specific [place] 1.020 (1.003-1.035) Urine Protein Tracemg/dL (NEG,TRACE) Urine Glucose (UA) Negativemg/dL (NEGATIVE) Urine Ketones Negativemg/dL (NEGATIVE) Urine Occult Blood Small (NEGATIVE) Urine Nitrite Negative (NEGATIVE) Urine Bilirubin Negative (NEGATIVE) Urine Urobilinogen 4mg/dL (NORMAL) Urine Leukocyte Esterase Negative (NEGATIVE) Urine RBC 0-2/hpf (0-2) Urine WBC 0-5/hpf (0-5) Urine Epithelial Cells Moderate/hpf (NONE-MOD) Urine Crystals None seen (NONE SEEN) Urine Bacteria Few/hpf (NONE-FEW) Urine Hyaline Casts Rare/lpf (NONE) Urine Granular Casts None seen (NONE SEEN) Urine Waxy Casts None seen (NONE SEEN) Urine Red Blood Cell Casts None seen (NONE SEEN) Urine White Blood Cell Casts None seen (NONE SEEN) Urine Mucus None seen (None Seen) Urine Trichomonas None seen (NONE SEEN) Urine Yeast None (NONE SEEN) Urinalysis Comment None Urine Culture Reflexed Not indicated Tumor Marker Alpha Fetoprotein 4.6ng/mL (0.0-8.3) Carcinoembryonic Antigen 232.4ng/mL (0.0-4.7) CA 19-9 Antigen 61581G/mL (0-35) Test 06/28/16 07:24 06/29/16 07:55 06/30/16 05:50 Procalcitonin 0.41ng/mL (0.00-0.08) Phosphorus Level 3.2mg/dL (2.5-4.9) Magnesium Level 1.8mg/dL (1.6-2.6) White Blood Count 9.4th/mm3 (3.8-10.1) Red Blood Count 3.47mil/mm3 (3.90-5.20) Hemoglobin 10.7g/dL (12.0-15.6) Hematocrit 32.0% (35.0-46.0) Mean Corpuscular Volume 92.2fL (81-100) Mean Corpuscular Hemoglobin 30.8pg (27.0-35.0) Mean Corpuscular Hemoglobin Concent 33.4% (32.0-37.0) Red Cell Distribution Width 14.3% (12.3-15.4) Platelet Count 236bil/L (150-400) Neutrophils (%) (Auto) 72.3% (40-74) Lymphocytes (%) (Auto) 11.4% (14-46) Monocytes (%) (Auto) 12.3% (4-12) Eosinophils (%) (Auto) 3.1% (0-5) Basophils (%) (Auto) 0.2% (0-3) Prothrombin Time 16.5sec (8.1-12.5) Prothromb Time International Ratio 1.53ratio Sodium Level 132mEq/L (134-144) Potassium Level 4.8mEq/L (3.5-5.2) Chloride Level 97mEq/L (97-108) Carbon Dioxide Level 19mmol/L (18-29) Blood Urea Nitrogen 27mg/dL (8-27) Creatinine 1.12mg/dL (0.57-1.00) Estimat Glomerular Filtration Rate 66mL/min (>59) Glucose Level 136mg/dL (60-99) Calcium Level 8.7mg/dL (8.5-10.1) Total Bilirubin 2.8mg/dL (0.0-1.2) Aspartate Amino Transf (AST/SGOT) 50U/L (0-50) Alanine Aminotransferase (ALT/SGPT) 39U/L (0-32) Alkaline Phosphatase 377U/L (25-165) Total Protein 5.7g/dL (6.4-8.4) Albumin 2.9g/dL (3.4-5.0) Discharge Medications Discharge Medications Citalopram (Citalopram) 20 Mg Tablet 20 MG PO DAILY (Reported) Estradiol (Estrace) 42.5 Gm Cream.appl 1 G VG /Sundays (Reported) Metoprolol Tartrate (Metoprolol Tartrate) 50 Mg Tablet 75 MG PO BID Prescribed by: PER HUGHES MD Spironolactone (Spironolactone) 25 Mg Tablet 25 MG PO DAILY (Reported) Warfarin Sodium (Warfarin Sodium) 5 Mg Tablet 2 MG PO Daily except Prescribed by: PER HUGHES MD As needed Docusate Sodium (Docusate Sodium) 250 Mg Capsule 250 MG PO DAILY PRN PRN For Constipation (Reported) oxyCODONE (oxyCODONE) 5 Mg Tablet 5 MG PO Q4H PRN PRN For Moderate Pain Prescribed by: PER HUGHES MD Followup Plan Disposition: [facility] facility, [facility] Follow-up plan Please follow-up with Dr Dimitris Nolasco at the [facility] in 1 week. Please follow-up with PCP in 1-2 weeks. You may follow-up with Dr Reddy , gastroenterology meanwhile if any concern until you are seen at [facility]. Discharge Diet: Low fat, Low Sodium, Heart Healthy Discharge Activity: Other (continue physical therapy at correction facility) Patient Instructions You were hospitalized due to left knee pain due to fall. 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 Dr Reddy spoke with Dr. Dimitris Nolasco at the [facility] gastroenterology . 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 will call you today/ Thursday to arrange appointment.please call Dr Reddy office if you do not get a call from .Dr Reddy gave your daughter the number to call . You had rapid atrial fibrillation.I have increased your metoprolol 75 mg milligrams twice daily from 50. You take spironolactone and losartan for hypertension. I have stopped losartan due to concern for kidney injury. May resume after talking to your PCP. we resumed your warfarin at a lower dose of 2 mg daily given new diagnosis of metastatic liver disease. Follow-up Provider: Rob Walters MD Follow-up with PCP in: 1 week Follow-up in: 1 week (Dr Dimitris Nolasco at the [facility] Mid-level Provider: Nathan Reddy MD Follow-up with Mid-level in: 3 weeks Time spent 55 minutes coordinating discharge, counseling patient and family, discussing with PCP copies to: Nathan Reddy MD; Rob Walters MD, Melaku MD Jun 30, 2016 13:11
--- NOTE | 2016-06-30 14:14 | PCM.PHAPRO ---
Progress Date of Service: Jun 30, 2016 REASON FOR GI CONSULT: Abnormal CT findings suggestive of hepatic malignancy, abnormal LFTs Warfarin dosing per pharmacy Indication: atrial fibrillation/flutter INR goal: 2-3 Home warfarin dose: 2.5 mg everyday except take none on . Pertinent info: new diagnosis of metastatic disease -- decrease warfarin dose per Dr. Gregory for possible liver mets Date Jun 27-Jun 28-Jun 29-Jun 30-Jun INR 3.29 3.67 1.57 1.59 1.53 INR change 0.38 -2.1 0.02 -0.06 Warf Dose NONE NONE NONE 1 mg xxxx Continue warfarin 1 mg PO daily @ 1700. Patient is likely discharging but order has been entered in case patient discharges after standard warfarin dosing time. Pharmacy to continue to monitor and dose warfarin daily. Thank you, Alcides Hunt Pharmacist Alcides Hunt Jun 30, 2016 14:14
== END 2016-06-30 14:00 | DRG 436 ==
LOC: SED 11:45 → OSC 17:35
PROVIDERS: ADMIT Internal Medicine; ATTEND Internal Medicine
DX: C22.1 Intrahepatic bile duct carcinoma (principal); N17.9 Acute kidney failure, unspecified; C78.7 Secondary malignant neoplasm of liver and intrahepatic bile duct; Z79.01 Long term (current) use of anticoagulants; R79.1 Abnormal coagulation profile; M25.562 Pain in left knee; W01.0XXD Fall on same level from slipping, tripping and stumbling without subsequent striking against object, subsequent encounter; Y93.01 Activity, walking, marching and hiking; Y99.9 Unspecified external cause status; Y92.014 Private driveway to single-family (private) house as the place of occurrence of the external cause; R63.4 Abnormal weight loss; I10 Essential (primary) hypertension; Z66 Do not resuscitate; I48.2 Chronic atrial fibrillation